=== PATIENT | female | born 1940 | race African-American/Black ===

== ENCOUNTER 2017-03-21 11:56 | Observation (INO) ==
[2017-03-21] MEDS ORDERED: ASPIRIN PO STA (12:27)
--- NOTE | 2017-03-21 13:41 | PROVIDER DOCUMENTATION ---
This chart was entered by Luda James Scribe, acting as scribe for Christian Pak MD. HPI-Musculoskeletal Pain/Inj - GENERAL Chief Complaint: Numbness Stated Complaint: left arm pain Time Seen by Provider: 03/21/17 12:20 Source: patient - HX OF PRESENT ILLNESS-MUSKULOSKELTAL Nature of Presenting Problem: 76 y/o F presents to ED cc of LUE pain. Pt states it was a sudden onset. Pt reports she was up cleaning this am when she became tired and laid down for a nap when she woke up with her left arm hurting. Pt states her hand is numb/ cold / blue. Pt denies any SOB/CP. Pt has not pain on exam but states she has pin/ needle feeling in hands. Pt has no loss of strength in left hand. Pt does have a stent placed in LLE due to clots. No pain can be reproduced. Pt sensation is intact, LUE has cyanotic appearance with cap refill less than 3 seconds. Pulse is weak. Pt is alert. Pt still has full range of motion of L arm. Quality of Pain: reports: aching, other (numbness/ pin and needles feeling) Severity in ED: mild Onset/Duration: just prior to arrival, 1-3 hours ago Timing: still present Modifying Factors: improves with: nothing Any recent injury?: No Similar Symptoms Previously?: No Recently seen or treated by another doctor?: No Review of Systems - Adult - REVIEW OF SYSTEMS - ADULT Constitutional: denies: chills, fever Ears, Nose, Mouth & Throat: denies: ear pain, nose pain Cardiovascular: denies: chest pain, palpitations Respiratory: denies: cough, shortness of breath Gastrointestinal: denies: abdominal pain, diarrhea, nausea, vomiting Genitourinary: denies: dysuria, discharge Musculoskeletal: reports: other (LUE PAIN/NUMBNESS). denies: bone pain, back pain, joint pain Neurological: denies: dizziness/vertigo, headache/migraines Past History - Adult - PAST MEDICAL HISTORY-ADULT Review of Records: reports: Old Records Reviewed, Nursing Assessment Review Major Childhood Illnesses: reports: denies history Cardiovascular: reports: CAD, CHF, HTN Respiratory: reports: COPD Endocrine/Immune: reports: Diabetes, thyroid disorder - PRIOR SURGERIES/PROCEDURES Surgical/Procedure History: reports: hysterectomy, other (THYROID) - PRIOR HOSPITALIZATIONS Prior Hospitalizations: reports: for other non-related - IMMUNIZATION STATUS Childhood Immunizations: See Nurse Assessment Flu Vaccine: See Nurse Assessment - FAMILY HISTORY Family History: reviewed, not pertinent - SOCIAL HISTORY Smoking: greater than 1 pack/day Provider spent 3-5 mins advising pt. on dangers of tobacco.: Discussed manners to quit use, and f/u contacts for add'l counseling. Substance Use: denies Physical Exam-Injury Related - Physical Exam-Injury Related Initial Vital Signs Reviewed: Yes General Appearance: alert, no apparent distress Eyes: pink conjunctivae Head, Ears, Nose, Mouth & Throat: moist mucous membranes, normal ENT inspection Neck: full range of motion, supple Respiratory: chest non-tender, lungs clear, normal breath sounds Cardiovascular: normal peripheral pulses, regular rate, rhythm, no edema Abdominal Exam: normal bowel sounds, non tender, soft Lymphatic: no adenopathy Back Exam: no CVA tenderness, no vertebral tenderness Extremity: non-tender, no pedal edema, no calf tenderness, other (LUE NUMBNESS/ PAIN - CYANOTIC APPERANCE. CAP REFILL IS LESS THAN 5 SECS.) Integumentary: normal color, warm/dry, blanching, other (CYANOTIC APPERANCE TO THE LUE WITH CAP REFILL LESS THAN 5 SECS) Neurologic: grossly normal, no motor/sensory deficits Psych/Mental Status: oriented x 3 - Glascow Coma Score Best Eye Response (Ariel): (4) open spontaneously Best Verbal Response (Ariel): (5) oriented Best Motor Response ([place]pton): (6) obeys commands [place] Total: 15 Progress - PLAN OF CARE/RESULTS Progress/Plan/Lab Results: Orders Category Date Time Status Cardiac Monitoring DIRECTED Care 03/21/17 12:27 Completed Nursing- MD Consult Request ROUTINE Care 03/21/17 18:01 Completed Saline Loc NOW Care 03/21/17 12:27 Active MD [Physician/Provider Consults] Routine Cons 03/21/17 18:00 Ordered CHEST-2 VIEWS [RAD] Stat Exams 03/21/17 12:27 Completed CBC WITH ELECTRONIC DIFF [HEME] Stat Lab 03/21/17 13:40 Completed CK PROFILE [SP CHEM] Stat Lab 03/21/17 13:40 Completed COMPREHENSIVE METABOLIC PANEL [CHEM] Stat Lab 03/21/17 13:40 Completed D-DIMER [CHEM] Stat Lab 03/21/17 13:40 Completed MAGNESIUM [CHEM] Stat Lab 03/21/17 13:40 Completed PRO B-NATRIURETIC PEPTIDE Stat Lab 03/21/17 13:40 Completed PROTIME WITH INR [COAG] Stat Lab 03/21/17 13:40 Completed PTT [COAG] Stat Lab 03/21/17 13:40 Completed TROPONIN T Stat Lab 03/21/17 13:40 Completed TYPE & SCREEN [BBK] Stat Lab 03/21/17 13:35 Completed 0.9% Sodium Chloride Inj [Ns] 2,000 ml Med 03/21/17 14:33 Discontinued .ROUTE As Directed Aspirin Med 03/21/17 12:27 Discontinued 325 mg PO STAT STA Cefazolin 1 gm/D5w [Kefzol 1 gm/D5w] Med 03/21/17 14:34 Discontinued 1 gm in 50 ml .ROUTE As Directed Furosemide [Lasix] Med 03/21/17 17:16 Discontinued 20 mg .ROUTE .STK-MED ONE Heparin Med 03/21/17 14:34 Discontinued 10,000 unit .ROUTE .STK-MED ONE Heparin Med 03/21/17 14:33 Discontinued 5,000 unit .ROUTE .STK-MED ONE Lactated Ringers Inj [Lr] 1,000 ml Med 03/21/17 17:42 Discontinued .ROUTE As Directed Lidocaine 1%/Epi 1:100,000 [Xylocaine 1%/Epi 1:100,000] Med 03/21/17 15:19 Discontinued 50 ml .ROUTE .STK-MED ONE Aerosol Treatments Stat Oth 03/21/17 17:23 Completed O2 Per Protocol Routine Oth 03/21/17 17:24 Completed Venous U/S Left Arm Stat Ther 03/21/17 12:27 Completed PLAN: LABS, RULE OUT CARDIAC AND CLOT, MONITOR PT. PT WILL GET A VENOUS U/S TO RULE OUT CLOT REFINERY OPERATOR CRUDE UNIT NOTIFIED DR. PAK OF RESULTS OF VASCULAR U/S. SURGERY HAS BEEN PAGED AND SURGERY HAS BEEN CALLED TO FIND DR. CROFT. HAS ALSO TEXT TO CALL ED. HAS CALLED BACK. Result Diagrams: 03/21/17 13:40 03/22/17 06:00 - EKG 1 Time of EKG reading by physician:: 13:25 EKG Read and Signed by:: Christian Pak EKG Interpretation (*Must complete 3 of following elements*): Abnormal Rate: 47 Rhythm: SINUS JAQUELINE W/PREMATURE ATRIAL COMPLEXES IN PATTERN OF BIGEMINY [place]: normal QRS: normal ME Interval: prolonged ST Wave: non-specific ST changes - CONSULTS/PCP/HOSPITALIST Notification #1 *Consult/PCP/Hospitalist*: ( surgrey ) Time Discussed: 13:23 Consult Disposition: Will see in ED - CHANGE OF SHIFT REPORT (ED Provider) Report Given and Care Transferred to:: Dr. Lehman(er doc) Items Pending: Physician Consult/Arrival Departure - Departure Date of Disposition Decision: 03/21/17 Time of Disposition Decision: 13:21 DIAGNOSIS: Arterial occlusion Disposition: ADMITTED INPATIENT 09 Certified Medical Emergency: Emergent Condition: Stable - Critical Care Note This patient required my direct & personal management of CC.: No This chart was documented by the indicated scribe, (Luda James Scribe) and accurately reflects the services I performed and decisions made by Mellisa dominguez Tom-Meka M., MD, as attested by the provider's signature.
--- NOTE | 2017-03-21 13:56 | Diag Imaging Result Doc PS360 ---
EXAM: CHEST-2 VIEWS HISTORY: CP TECHNIQUE: PA and lateral COMMENT: There is an area of fibrosis in the lingula. The inspiration is less optimal on the previous study of 02/04/2017 otherwise has been no significant change in the appearance of the chest. The heart size remains enlarged. IMPRESSION: Cardiomegaly. Stable chest. Electronically signed by Jj Cruz 03/21/2017 1:54 PM
[2017-03-21 13:59] LABS: MANUAL DIFF NEEDED? NO
[2017-03-21 14:04] LABS: BASO% 0.1 % (0.0-0.8); EOS# 0.09 X1000 (0.0-0.7); EOS% 1.3 % (0.0-10.0); HEMATOCRIT 33.9 % (37.0-47.0); LYMPH# 1.03 X1000 (1.2-3.4); LYMPH% 14.5 % (20.5-51.1); MCH 30.5 PG (27-31); MCHC 32.4 g/dL (33-37); MCV 93.9 FL (81-99); MONO# 0.42 X1000 (0.11-0.59); MONO% 5.9 % (1.7-9.3); MPV 11.8 FL (7.4-10.4); NEUT% 78.2 % (42.2-75.2); PLT 183 X1000 (130-400); RBC 3.61 XMIL (4.2-5.4)
[2017-03-21 14:13] LABS: INR 1.05; PROTIME 11.1 Seconds (9.2-11.7); PTT 31.7 Seconds (22.0-36.0)
[2017-03-21 14:33] LABS: ALBUMIN 3.3 g/dL (3.5-5.0); CALCIUM 8.3 mg/dL (8.8-10.2); TOTAL BILIRUBIN 0.26 mg/dL (0.20-1.00)
[2017-03-21] MEDS ORDERED: NS 2,000 ML ONE (14:33)
[2017-03-21] MEDS ORDERED: HEPARIN ONE ×2 (14:33→14:34)
[2017-03-21] MEDS ORDERED: KEFZOL 1 GM/D5W 1 GM/50 ML IVPB ONE (14:34)
[2017-03-21] MEDS ORDERED: XYLOCAINE 1%/EPI 1:100,000 ONE (15:19)
--- NOTE | 2017-03-21 15:26 | HISTORY AND PHYSICAL ---
HISTORY OF PRESENT ILLNESS: Ms. Jenna Pereira is a 76-year-old black female who this morning began experiencing left shoulder and upper extremity pain acutely. She has known peripheral vascular disease and this pain began around 10 o'clock this morning. She presented to the emergency department and has been evaluated including a duplex ultrasound of the arteries left upper extremities, which suggests a embolus or clot involving the proximal left brachial artery. We were asked to evaluate her because of her ischemic left upper extremity. PAST MEDICAL HISTORY: Diabetes, hypertension, previous vascular surgery by Dr. Meza in [place]. MEDICATIONS: As listed. ALLERGIES: No known drug allergies. SOCIAL HISTORY: She is retired. Her daughter was present at the bedside. FAMILY HISTORY: Noncontributory. REVIEW OF SYSTEMS: A 14-point review of systems was performed. She has no cardiac complaints and was essentially negative except for the history of present illness. She did not say that she had a history of atrial fibrillation, but she is on chronic anticoagulation. PHYSICAL EXAMINATION: GENERAL: Ms. Pereira is an elderly, slim black female in no acute distress. She does complain of numbness involving her left upper extremity. She has no focal deficits. No jaundice. No oral lesions. No cervical or supraclavicular lymphadenopathy. I could not palpate brachial artery pulse or a radial pulse left upper extremity. I could on the right upper extremity. She did have palpable femoral pulses bilaterally. She was able to move her left arm. She was able the squeeze my fingers with her hand but it felt numb and was cool. DIAGNOSTIC DATA: I reviewed her duplex arterial study of the left upper extremity. It appears that she has a bifid left brachial artery. Does appear that she has an acute clot or embolus involving the proximal brachial artery by duplex ultrasound. IMPRESSION: Acute ischemia, left upper extremity. PLAN: Urgent thrombectomy or embolectomy, left upper extremity. I have discussed this in detail with the patient and her daughter at the bedside in the emergency department. We specifically discussed risks of surgery which include bleeding, infection, persistent ischemia of the left upper extremity, even loss of limb because of ischemia. They understand the urgency of this operation and want to proceed. cc: Catie Simms MD
[2017-03-21] MEDS: LASIX ONE (17:19)
[2017-03-21] MEDS ORDERED: LR 1,000 ML ONE (17:42)
--- NOTE | 2017-03-21 17:54 | OPERATIVE NOTE ---
PROCEDURE DATE: 03/21/2017 PREOPERATIVE DIAGNOSIS: Ischemic left hand. POSTOPERATIVE DIAGNOSIS: Ischemic left hand. PRINCIPAL PROCEDURE: Thromboembolectomy with vein patch angioplasty left brachial arteries x2. SURGEON: Catie Simms MD. MANAGER FIELD: Ghanshyam Carver RN. ANESTHESIA: General in addition to local anesthetic. ESTIMATED BLOOD LOSS: 200 mL. DRAINS: None. INDICATIONS: Ms. Jenna Pereira is a 76-year-old black female who presented to our emergency department with a 3-hour history of pain in her left shoulder and arm which was severe. On exam it appeared that her left upper extremity was cool and arterial duplex studies suggested an embolus within the proximal brachial arteries. She had two brachial arteries involving her left arm and it appeared that clot involved both of these brachial arteries. They divided proximally in the left arm. On exam prior to surgery she had no radial pulse but she could move her fingers. FINDINGS: We removed a significant amount of clot from the most inferior branch of the brachial artery at the distal medial left arm arteriotomy site. We also removed a small amount of clot from the smaller second brachial artery more anterior medially in the left arm again through an arteriotomy site in the distal left medial arm. At the end of our procedure we had a strong palpable left radial pulse and both of the brachial arteries were open. We performed a patch angioplasty of our arteriotomy sites in both brachial arteries. DESCRIPTION OF PROCEDURE: The patient was brought to the operating room urgently. Her left upper extremity was prepped and draped in a sterile field. She received Ancef prophylactically. She underwent general anesthesia. I made a small longitudinal incision in medial aspect of her distal left arm above the antecubital fossa and identified one of the brachial arteries. A segment of it was isolated, using this incision between vessel loops. We used a Weitlaner retractor. I found the other brachial artery more inferiorly and again isolated a segment of it with vessel loops. The patient was given 3000 units of IV heparin. She was already on aspirin and another anticoagulant. We began by working on the deepest brachial artery. Remember there were two brachial arteries in the left arm, they divided high in the medial left arm. There was the basilic vein and another smaller vein that were close to these arteries and I used segments of these veins for the patch to close our arteriotomy site. We made the arteriotomy in the first brachial artery with an 11 blade scalpel. We controlled inflow and outflow with vessel loops. I used a #4 Marline catheter distally and then proximally to remove a significant amount of clot and embolus through our arteriotomy site. We had good inflow after several sweeps with the #4 Marline balloon, and we felt that all the clot was removed both proximally and distally. I closed the arteriotomy site with a vein patch using double-arm 6-0 Prolene stitches. Flow was reestablished. I had to take several single arm stitches to control some bleeding from our closure. After the closure we had a palpable radial pulse. I then directed my attention to the second brachial artery more anteriorly. Again an arteriotomy was made with 11 blade scalpel and we used a #3 Marline catheter both proximally and distally and removed a smaller amount of clot and re- established inflow. Again I used a vein patch to perform a patch angioplasty using double-arm 6-0 Prolene stitches. We again reestablished flow and at the end of the procedure both brachial arteries had flow in them at our incision site and we had a strong palpable left radial pulse. I closed the wound in layers with 3-0 popoff Vicryl stitches, closed the subcutaneous tissue and skin was closed with 4-0 Monocryl subcuticular stitch. Dressings were applied. She tolerated the procedure well with plans for her to go the recovery room and then be hospitalized at least overnight so we can have Cardiology evaluate the patient for possible etiology of this thromboembolus. cc: Catie Simms MD
[2017-03-21] MEDS ORDERED: NICODERM PATCH TD PRN (18:36)
[2017-03-21] MEDS ORDERED: ZOFRAN IV PRN (18:40)
[2017-03-21] MEDS ORDERED: D50W SYRINGE IV PRN (18:46)
--- NOTE | 2017-03-21 18:59 | CONSULTATION ---
DATE OF CONSULTATION: 03/21/2017 INDICATION: History of atrial fibrillation with left upper extremity arterial embolus. HISTORY OF PRESENT ILLNESS: Ms. Pereira is a 76-year-old black female with a history of paroxysmal atrial fibrillation maintained on amiodarone as well as Eliquis. She presented with left upper extremity pain that began this morning. On further evaluation she was found to have a embolus in the left brachial artery which since has been surgically removed by Dr. Simms. Since that time, she has done well and has no complaints to the left upper extremity anymore. She thinks she has had some noncompliance with some of her cardiac medications. She is unclear of exactly which ones but thinks that she may have been off the Eliquis for some time. In addition, she has had chronic abdominal pain which has been persisting for the last several months. It sounds like she has had an EGD and colonoscopy but that may have been done some time ago. She has not followed back up with GI since then. No nausea or vomiting. She just continues to have abdominal pain and issues with constipation. She thinks she has had poor oral intake as well as issues with weight loss. PAST MEDICAL HISTORY: Significant for. 1. Paroxysmal atrial fibrillation. 2. Coronary artery disease with catheterization in 2010. At that time, she had mild disease up to 30% in the left anterior descending as well as the circumflex and right coronaries. 3. Hypertension. 4. Hyperlipidemia. 5. History of peripheral vascular disease with a left SFA stent in 2007, right SFA angioplasty in 2009 and right popliteal artery angioplasty in 2009 as well. Now she has had issues in the left brachial artery. 6. History of hypertrophic cardiomyopathy. This was not evident on echocardiogram. However she did have a gradient noted during catheterization. 7. Diabetes mellitus. 8. Chronic back pain. 9. Chronic abdominal pain. SOCIAL HISTORY: She does smoke. No alcohol. No illicit drugs. REVIEW OF SYSTEMS: A 10 system review of systems is negative except for those things mentioned in HPI. FAMILY HISTORY: Significant for stroke in her mother. PHYSICAL EXAMINATION: Vital signs: She has been afebrile. Her heart rates are documented anywhere from the 40s to 60s. Blood pressure is 165/60. General: She is in no acute distress. HEENT: Oropharynx is moist. Normal dentition. Eye examination shows pink conjunctivae, white sclerae. Neck: Examination shows no obvious thyromegaly or thyroid tenderness. Cardiovascular: She sounds to be in a regular rate and rhythm. EKG currently shows sinus mechanism. She has no lower extremity edema. She has good pulses in her bilateral radial arteries. No carotid bruits. Chest: Exam sounds clear to auscultation bilaterally. She has no increased work of breathing. Abdomen: Soft, nontender, nondistended. She has no obvious organomegaly. Skin Exam: Warm and dry throughout without any rashes. Neurological: She is moving all extremities well. Cranial nerves 2-12 are intact without sensation deficits. Psychiatric: Alert, oriented, pleasant. Normal mood and affect. PERTINENT DATA: Her white count 7.1, her hematocrit is 33.9, platelet count is 183,000. INR 1.05. D-dimer was elevated at 1.41. Sodium 139, potassium 4, BUN 18, creatinine 1.3. Cardiac enzymes negative. ProBNP 1449. ASSESSMENT: 1. Acute embolic arterial embolus. 2. Atrial fibrillation. 3. Chronic abdominal pain. PLAN: We will check an echocardiogram in the morning. I would recommend continuing the Eliquis as previously ordered by Dr. Simms. She is also on amiodarone which I agree with. We will watch her on telemetry overnight. If echocardiogram is unremarkable, then she may be discharged from a cardiovascular standpoint. We could consider transesophageal echocardiogram down the road as an outpatient but presently whether she has a clot in her heart does not change the present plan of continued anticoagulation. I have stressed the compliance with anticoagulation with the patient. I will consult GI in the morning to see the patient considering her continued abdominal pain which seems to be causing her a significant amount of distress. cc: MD Catie Singleton MD
[2017-03-21] MEDS: NORCO-7.5 PO PRN (19:04)
[2017-03-21] MEDS: LR 1,000 ML IV SCH (19:05)
[2017-03-21] MEDS ORDERED: FENTANYL ONE (19:24)
[2017-03-21] MEDS ORDERED: DIPRIVAN 1% ONE (19:50)
[2017-03-21] MEDS: ELIQUIS PO SCH (20:57)
[2017-03-21] MEDS: HUMALOG SUBQ SCH (20:57)
[2017-03-21] MEDS: ATIVAN PO SCH (20:57)
[2017-03-21] MEDS: CATAPRES PO SCH (20:57)
[2017-03-21] MEDS: PERIDEX MT SCH (20:57)
[2017-03-22] MEDS: NORCO-7.5 PO PRN ×2 (04:24→19:29)
[2017-03-22] MEDS: LR 1,000 ML IV SCH ×3 (04:25→21:38)
[2017-03-22] MEDS ORDERED: TUMS PO PRN (04:26)
[2017-03-22] MEDS: HUMALOG SUBQ SCH ×4 (06:25→21:32)
[2017-03-22 06:39] LABS: CALCIUM 8.3 mg/dL (8.8-10.2); POTASSIUM 4.1 mmol/L (3.5-5.1)
[2017-03-22] MEDS: CATAPRES PO SCH ×2 (11:24→21:32)
[2017-03-22] MEDS: CORDARONE PO SCH (11:24)
[2017-03-22] MEDS: HYDROCHLOROTHIAZIDE PO SCH (11:24)
[2017-03-22] MEDS: ASPIRIN PO SCH (11:24)
[2017-03-22] MEDS: PRINIVIL PO SCH (11:25)
[2017-03-22] MEDS: ELIQUIS PO SCH ×2 (11:25→21:32)
[2017-03-22] MEDS: PERIDEX MT SCH ×2 (11:26→21:33)
[2017-03-22] MEDS: LASIX ONE (12:18)
[2017-03-22] MEDS ORDERED: MILK OF MAGNESIA PO ONE (14:38)
--- NOTE | 2017-03-22 14:43 | PROGRESS NOTE ---
DATE: 03/22/2017 SUBJECTIVE: Ms. Pereira reports her left upper extremity is doing well. She is having no issues with any pain. She has a good pulse. She continues to have issues with abdominal pain that seemed chronic and relatively mild to moderate at this time. She reports some swelling in her left leg that also is chronic with some discomfort, as well. PHYSICAL EXAMINATION: Vital Signs: She is afebrile. Heart rates have been anywhere from the 40s to the 60s. Blood pressure is 147/45. General: She is in no acute distress. Cardiovascular: She is in a regular rate and rhythm. She has no obvious murmurs. She has no S3. No lower extremity edema. Chest: Examination is clear bilaterally. She has no increased work of breathing. Abdomen: Soft and nontender. PERTINENT DATA: Her sodium is 140, potassium 4.1, BUN 20, creatinine 1.3. ASSESSMENT: 1. Acute left upper extremity arterial clot, status post thrombectomy. 2. Left lower extremity edema and pain. PLAN: We will check a venous ultrasound of the left lower extremity. If this is clear, she can likely be discharged home. Even if it is positive, she can likely be discharged, as she is already on Apixaban. I will have her follow up as an outpatient with me in clinic in a month or so. cc: MD Catie Singleton MD
--- NOTE | 2017-03-22 14:56 | PROGRESS NOTE ---
DATE: 03/22/2017 Ms. Jenna Pereira is a 76-year-old black female who is now postop day 1 from a urgent left brachial artery thromboembolectomy for an ischemic left upper extremity. I performed this procedure yesterday evening with removal of a clot. She does have 2 brachial arteries involving the left arm and both of these arteries were cleared of clot and a patch angioplasty using vein was performed of the arteriotomy site. This morning she has a palpable left radial pulse that is strong and the symptoms of her ischemic hand have improved. The wound is dressed. There is no evidence of abnormal swelling or ongoing bleeding. We have placed her on chronic anticoagulation per Cardiology for atrial fibrillation. She is undergoing an echocardiogram this morning. I do not know those results. It must be noted that she is complaining of trouble eating and some abdominal discomfort which is significant for her and needs to be evaluated probably as an outpatient. cc: Catie Simms MD
--- NOTE | 2017-03-22 15:16 | ECHO REPORT ---
ORDER DATE: 03/22/2017 INDICATION: Atrial fibrillation. History of arterial embolus. FINDINGS: 1. The right atrium is mildly enlarged at 4.1 cm. 2. Mild to moderate tricuspid regurgitation. RV systolic pressure of 92 suggesting pulmonary hypertension. 3. Normal RV size and systolic function. 4. Mild pulmonic insufficiency. 5. Moderate left atrial enlargement at 5.5 cm. 6. No mitral valve prolapse. Trace mitral regurgitation. 7. Normal LV size, end-diastolic dimension of 4.7. There is moderate left ventricular hypertrophy with a posterior and interventricular septal wall thickness 1.5 and 1.3 cm respectively. LV function appears to be hyperdynamic with a EF greater than 70%. There is no significant LV outflow tract gradient noted. However the patient gave poor effort on Valsalva. 8. Aortic valve opens well and appears trileaflet. No evidence of stenosis or insufficiency. 9. Aorta appears normal in visualized segments. 10. There is evidence for a very scant pericardial effusion anteriorly but no evidence of tamponade physiology. cc: MD Catie Singleton MD
[2017-03-22] MEDS: MYLICON PO SCH ×2 (18:11→21:32)
--- NOTE | 2017-03-22 18:36 | CONSULTATION ---
DATE OF CONSULTATION: 03/22/2017 Patient was seen for Dr. Blanco. Reason for consult was abdominal pain. HISTORY: This is a 76-year-old female who sees Dr. Blanco as her GI. She has had EGD and colonoscopy not too long ago for her current symptoms. She reports that for the past 6 months she has been experiencing abdominal pain which is diffuse and usually postprandial associated with bloating, burping and also excessive flatulence. She has been through EGD and colonoscopy. I do not have the report with me. Apparently, she was told that she has gastritis and needs to take some MiraLAX. She has done that but continues to have symptoms. Since she was admitted to the hospital consult was obtained for her to be seen while she is in the hospital. She has underwent thrombectomy for her carotid artery. She tells me the pain is diffuse and associated with bloating, burping and flatulence. It is not associated with nausea. Her appetite is good but she does not want to eat because of postprandial bloating. She has not lost any weight. She has not had any dysphagia or odynophagia. Denies any melena or bright red blood per rectum. She has not had any dysuria, polyuria, hematuria. Has not any fever, chills. PAST MEDICAL HISTORY: Significant for diabetes, hypertension. She has peripheral vascular disease and gastritis. She has paroxysmal atrial fibrillation, coronary disease status post catheterization in 2010, hyperlipidemia, chronic back pain. MEDICATION: Prior to hospitalization, she has been on lisinopril, Lortab, hydrochlorothiazide, hydralazine, gabapentin, Catapres, aspirin, Eliquis, Norvasc, Cordarone, spironolactone, lorazepam and NovoLog. ALLERGIES: No known allergies. SOCIAL HISTORY: She is a , lives by herself. Does not smoke. Does not drink, does not do illicit drugs. FAMILY HISTORY: Noncontributory. REVIEW OF SYSTEMS: As per HPI as above. On examination very pleasant female. She is conscious, alert. Appears to be in no distress. She is very anxious about her abdominal pain.Vital Signs: Temperature 98.5 degrees, pulse 63 per minute, breathing 16. Blood pressure 147/45. She weighs about 158 pounds. She is 5 feet 9 inches tall. HEENT: Head is atraumatic normocephalic. Eyes: Conjunctiva is normal. Sclerae anicteric. Nares are patent. No discharge. Mouth: Buccal mucosa is moist. Throat is normal. Neck: Supple. No lymphadenopathy or thyromegaly. Chest: Bilaterally symmetrical. It is moving with respirations. Breath sounds audible bilaterally. No rhonchi or crepitations could be heard. Heart: S2 audible. No murmur could be appreciated. Abdomen: Full, soft, nontender. No masses were noted. Bowel sounds are audible. No pedal edema, cyanosis, clubbing was noted. BULLION WEIGHER: Grossly intact. No sensory or motor deficit. There is a dressing applied to her antecubital area. Labs reviewed which showed WBC 37.12, hemoglobin 11, hematocrit 33.9, MCV 93.9, platelets were 183,000. PT 11.1. INR 1.05. PTT 31.7. Sodium 140, potassium 4.1, chloride 105, bicarb 24, BUN is 20, creatinine 1.3. Glucose 195. AST 14, ALT 10. IMPRESSION: This is a 76-year-old female who was admitted to hospital for thrombectomy. She has been complaining of abdominal pain which is going on for the past 6 months or so for which she has been treated with different medication. Has undergone EGD and colonoscopy. Her pain is not different from prior to her admission. I do not have the report of her EGD and colonoscopy with me now. She has been constipated and has not had a bowel movement. I would give her some medication to help her alleviate her constipation and also give her some simethicone for gas, eructations and flatulence and see if that symptomatic treatment would help her. However she does need further evaluation which may require CT scan of the abdomen to look at the small bowel and other extraintestinal pathologies in the abdomen. That very well can be done as an outpatient if she is ready to be discharged for her initial reason for admission. If she is still in the hospital by Friday Dr. Blanco will be able to pick her up for further management. I have explained the finding and plan to the patient's daughter who was present at the bedside. She understood. All the pertinent questions answered. cc: MD Catie Shafer MD
[2017-03-22] MEDS: ATIVAN PO SCH (21:32)
[2017-03-23] MEDS: NORCO-7.5 PO PRN (03:24)
[2017-03-23] MEDS: HUMALOG SUBQ SCH (06:07)
[2017-03-23 09:14] VITALS: BP 171/50
[2017-03-23] MEDS: ASPIRIN PO SCH (09:20)
[2017-03-23] MEDS: ELIQUIS PO SCH (09:20)
[2017-03-23] MEDS: HYDROCHLOROTHIAZIDE PO SCH (09:20)
[2017-03-23] MEDS: CORDARONE PO SCH (09:20)
[2017-03-23] MEDS: PRINIVIL PO SCH (09:20)
[2017-03-23] MEDS: CATAPRES PO SCH (09:20)
[2017-03-23] MEDS: MYLICON PO SCH (09:20)
--- NOTE | 2017-03-23 10:50 | DISCHARGE SUMMARY ---
ADMISSION DATE: 03/21/2017 DISCHARGE DATE: 03/23/2017 ADMITTING DIAGNOSIS: Acute ischemia of left upper extremity. DISCHARGE DIAGNOSIS: Thromboembolus involving the left brachial artery. PRINCIPAL PROCEDURE: Thromboembolectomy of left arm brachial artery x2 with a vein patch angioplasty performed on 03/21/2017. CONSULTATIONS: 1. Cardiology, Dr. Evelio Wilson. 2. GI medicine, Dr. Pan. DISCHARGE DIET: Regular. DISCHARGE DISPOSITION: She will return to see us in our outpatient offices in 1 week. DISCHARGE DISABILITY: Full. DISCHARGE MEDICATIONS: She is to return to her home medications which include multiple blood pressure medicines. We have stressed her to take her anticoagulation medicines correctly. HOSPITAL COURSE: Ms. Jenna Pereira is a 76-year-old black female, patient Dr. Franks, who presented to our emergency department with an ischemic left upper extremity. A duplex ultrasound of the left upper extremity suggested a thrombus involving brachial arteries in the left arm. Her brachial artery bifurcated high in the left arm and she had 2 brachial arteries going down to the antecubital fossa. She was urgently taken to the operating room and then she underwent thromboembolectomy of both of these brachial arteries is left arm with vein patch angioplasty of our arteriotomy sites which was in the distal left arm above the antecubital fossa. We removed clot from both arteries and at the end of the procedure we had a good radial pulse at the wrist. She tolerated the procedure well and after surgery she went to the recovery room and then she was admitted. We asked cardiology to see her to be sure that she was on the correct medicine for her high blood pressure and for her chronic atrial fibrillation. She underwent an echo and Dr. Evelio Wilson evaluated her. Dr. Wilson also asked GI Medicine to see her because of a six-month history of abdominal pain. This was not an acute issue for her during this hospitalization but Dr. Pan evaluated her and suggested further evaluation as an outpatient with Dr. Blanco who has fairly recently performed an upper and lower endoscopy. At the time of discharge her left arm wound was healing well. She had a strong left radial pulse. She was awake, cooperative, moving in the room, tolerating the diet. Her blood pressure was 164/56, heart rate was 56-64. She was essentially afebrile and her O2 saturation was 94% on room air. It was encouraged that she quit smoking. I will see her in a week. cc: MD Dr. Golden Adames MD Babu Kantamneni, MD
[2017-03-24] MEDS ORDERED: ZOFRAN ONE (09:21)
[2017-03-24] MEDS ORDERED: EPHEDRINE ONE (09:21)
[2017-03-24] MEDS ORDERED: HEPARIN ONE (09:21)
[2017-03-24] MEDS ORDERED: ROBINUL ONE (09:21)
[2017-03-24] MEDS ORDERED: NEO-SYNEPHRINE ONE (09:21)
[2017-03-24] MEDS ORDERED: XYLOCAINE-MPF 2% ONE (09:22)
[2017-03-24] MEDS ORDERED: NS 250 ML ONE (09:22)
[2017-03-24] MEDS ORDERED: QUELICIN (DOSE) ONE (09:22)
[2017-03-24] MEDS ORDERED: LR 2,000 ML ONE (09:22)
--- NOTE | 2017-03-25 11:54 | VASCULAR LAB ---
DATE: 03/21/2017 REFERRING PHYSICIAN: Dr. Pak from the emergency department RN STAFF: Linda Valverde RVT INDICATION: Pain in left arm (ICD-10 M79.605). FINDINGS: The left subclavian and axillary artery had arterial flow through them. The brachial artery divided proximally in the arm, and there were 2 brachial arteries involving almost the entire length of the left arm. At this bifurcation, there appeared to be a thrombus with occlusion of both branches of this bifurcated brachial artery proximally, left arm, without arterial flow distally. cc: MD Christian Adames MD
--- NOTE | 2017-03-25 13:34 | Extremity Venous Study ---
PROCEDURE NAME: Venous U/S Left Leg - 03/22/2017 PROCEDURE: Left lower extremity venous duplex and color flow imaging study. EQUIPMENT: Using the [employer] E 9 ultrasound system with a 9 L-D transducer. DATE OF STUDY: 03/22/2017. REFERRING PHYSICIAN: Dr. Evelio Wilson. PATIENT PROFILE: This is a 76-year-old female. SHERIFF'S OFFICER: Di Camacho RVT. INDICATIONS: Swelling of the limb, M 79.89. DESCRIPTION OF PROCEDURE IN DETAIL: This patient was admitted with an acute thrombus involving her left arm brachial artery. While in the hospital, it was noted that she had left lower extremity edema. FINDINGS: The left common femoral vein and its branches, deep and superficial femoral veins, were satisfactorily imaged. They had flow through them and were compressible. Left popliteal vein and the deep veins below the left knee were all compressible and had flow through them. The superficial veins the left lower extremity were compressible throughout their length. INTERPRETATION: No evidence of acute deep or superficial venous thrombosis left lower extremity. cc: MD Evelio Adames MD
--- NOTE | 2017-03-27 15:03 | Extremity Venous Study ---
PROCEDURE NAME: Venous U/S Left Arm - 03/21/2017 LEFT UPPER EXTREMITY VENOUS DUPLEX, AND COLOR FLOW IMAGING STUDY USING THE [employer] E 9 ULTRASOUND SYSTEM WITH A 9 L-D TRANSDUCER: REFERRING PHYSICIAN: Christian Pak MD from the Emergency Department IDENTIFYING INFORMATION: 76-year-old female. FRUIT GRADER: Linda Lyle RVT. INDICATIONS: Chest pain, unspecified. ICD 10 R07.9. FINDINGS: The right internal jugular vein had flow through it and was compressible. The right subclavian and axillary veins had flow through them. The brachial vein was compressible throughout its length in the left arm. The superficial veins of the left arm were compressible and had flow through them as did the veins in the antecubital fossa and the small veins left forearm. INTERPRETATION: No evidence of acute deep or superficial venous thrombosis left upper extremity. cc: MD Christian Adames MD
== END 2017-03-23 11:11 | disposition home or self-care (01) ==
LOC: ED 11:56 → INTOOBSV 18:06 → 4N 18:06
PROVIDERS: ADMIT Surgery; ATTEND Surgery

== ENCOUNTER 2018-12-11 04:53 | Inpatient (IN) ==
[2018-12-11] MEDS ORDERED: ASPIRIN PO ONE (05:48)
[2018-12-11] MEDS ORDERED: ASPIRIN PR ONE (05:48)
[2018-12-11 06:12] LABS: BASO# 0.01 X1000 (0.0-0.2); BASO% 0.1 % (0.0-0.8); EOS# 0.41 X1000 (0.0-0.7); EOS% 2.9 % (0.0-10.0); HEMATOCRIT 35.2 % (37.0-47.0); HEMOGLOBIN 11.8 g/dL (12.0-16.0); IMM GRAN# 0.05 X1000 (0.0-0.04); IMM GRAN% 0.4 % (0.0-0.5); LYMPH# 1.33 X1000 (1.2-3.4); LYMPH% 9.4 % (20.5-51.1); MCH 30.2 PG (27-31); MCHC 33.5 g/dL (33-37); MONO% 8.5 % (1.7-9.3); MPV 12.1 FL (7.4-10.4); NEUT# 11.11 X1000 (1.4-6.5); NEUT% 78.7 % (42.2-75.2); PLT 142 X1000 (130-400); RBC 3.91 XMIL (4.2-5.4); RDW 13.6 % (11.5-14.5); WBC 14.11 X1000 (4.8-10.8)
[2018-12-11 06:35] LABS: INR 1.08; PROTIME 14.6 Seconds (11.0-16.0)
[2018-12-11 06:36] LABS: PTT 38.5 Seconds (22.3-41.8)
--- NOTE | 2018-12-11 06:37 | Diag Imaging Result Doc PS360 ---
CHEST-2 VIEWS - 12/11/2018 INDICATION: shortness of breath COMPARISON: 06/01/2018 FINDINGS: Stable left-sided dual-chamber pacemaker. Stable mild cardiomegaly. Pulmonary vascularity is top normal. There is some ill-defined infiltrate in the right upper and lower lobes. No pneumothorax or pleural effusion. IMPRESSION: Ill-defined infiltrates in the right upper and lower lobes consistent with pneumonia or edema. Electronically signed by Reynold Lloyd 12/11/2018 6:34 AM
--- NOTE | 2018-12-11 06:39 | EKG Report ---
Test Performed on : 12/11/2018 05:14:28 AM Test Reason : short of breath Blood Pressure : / mmHG Vent. Rate : 062 BPM Atrial Rate : 062 BPM P-R Int : 210 ms QRS Dur : 094 ms QT Int : 456 ms P-R-T Axes : 084 013 176 degrees QTc Int : 462 ms Atrial-paced rhythm with prolonged AV conduction ST & T wave abnormality, consider inferior ischemia ST & T wave abnormality, consider anterolateral ischemia Abnormal ECG When compared with ECG of 13-NOV-2017 11:31, Electronic atrial pacemaker has replaced Electronic ventricular pacemaker Unconfirmed Result
[2018-12-11 06:44] LABS: ALBUMIN 3.2 g/dL (3.5-5.0); CREATININE 1.3 mg/dL (0.5-0.9); POTASSIUM 3.9 mmol/L (3.5-5.1); TOTAL BILIRUBIN 0.4 mg/dL (0.20-1.00); TOTAL PROTEIN 6.1 g/dL (6.3-8.3)
[2018-12-11] MEDS ORDERED: ROCEPHIN 1 GM in NS 50 ML IV ONE (06:46)
[2018-12-11] MEDS ORDERED: LASIX IV ONE (07:19)
--- NOTE | 2018-12-11 07:39 | PROVIDER DOCUMENTATION ---
HPI-Respiratory General - General Chief Complaint: Shortness of Breath Stated Complaint: COLD LIKE SX Time Seen by Provider: 12/11/18 06:45 Source: patient Allergies/Adverse Reactions: Patient Allergies Allergy/AdvReac Type Severity Reaction Status Date / Time No Known Allergies Allergy Verified 02/23/18 05:56 Home Medications: Home Medication List Medication Instructions Recorded Confirmed Last Taken Type Clonidine [Catapres] 0.2 mg PO BID 09/08/14 12/11/18 02/23/18 04:15 History Gabapentin 300 mg PO BID 09/08/14 12/11/18 02/20/18 History Hydralazine HCl 100 mg PO BID 09/08/14 12/11/18 02/23/18 04:15 History Insulin Aspart [Novolog] 10 unit SQ TID PRN PRN 09/08/14 12/11/18 02/22/18 19: 00 History 2 units Lisinopril 40 mg PO DAILY 09/08/14 12/11/18 02/22/18 08:00 History Lorazepam 0.5 mg PO HS 09/08/14 12/11/18 02/09/18 History Spironolactone 25 mg PO DAILY 09/08/14 12/11/18 02/22/18 19:00 History Amiodarone [Cordarone] 200 mg PO DAILY #30 tablet 08/22/16 12/11/18 02/23/18 04: 15 Rx Apixaban [Eliquis] 5 mg PO BID #60 tablet 08/22/16 12/11/18 02/18/18 Rx Amlodipine Besylate 0.5 tab PO DAILY 11/12/17 12/11/18 02/22/18 20:00 History Hydrochlorothiazide 12.5 mg PO DAILY 11/12/17 02/23/18 02/22/18 History Insulin Glargine,Hum.rec.anlog 13 unit SQ HS 11/12/17 02/23/18 02/22/18 19:00 History [Lantus Solostar] 12 units Metoprolol Tartrate 50 mg PO BID 11/12/17 12/11/18 02/23/18 04:15 History Hydrocodone/APAP 7.5 mg/325 mg 1 each PO Q4H PRN #12 tablet 02/24/18 12/11/18 Unknown Rx [[place]-7.5] - History of Present Illness-Resp Nature of Presenting Problem: Patient is a 78 year old black female with history of atrial fibrillation, COPD , S/P pacemaker placement,diabetes, and HTN, followed by Dr. Eric Franks who presents with increasing SOB,productive white sputum, with orthopnea since last night. Denies fever, chest pain. Onset/Duration: reports: gradual, this evening Timing: reports: still present Exposure: reports: unknown cause Cough Quality/Degree: reports: moderate, sputum (clear) Associated Symptoms: reports: cough. denies: chest pain/soreness, fever/chills Similar Symptoms Previously?: Yes Recently seen or treated by another doctor?: Yes (Dr. Eric Franks) Review of Systems - Adult - REVIEW OF SYSTEMS - ADULT Constitutional: denies: chills, fever Eyes: reports: no symptoms reported Ears, Nose, Mouth & Throat: reports: no symptoms reported Cardiovascular: reports: orthopnea. denies: chest pain Respiratory: reports: cough, shortness of breath, wheezing Gastrointestinal: denies: abdominal pain, nausea, vomiting Genitourinary: reports: no symptoms reported Musculoskeletal: reports: no symptoms reported Integumentary: reports: no symptoms reported Neurological: reports: no symptoms reported Psychiatric: reports: anxiety Endocrine: reports: no symptoms reported Hematologic/Lymphatic: reports: no symptoms reported Allergic/Immunologic: reports: no symptoms reported All Other Systems: Reviewed and Negative Past History - Adult - PAST MEDICAL HISTORY-ADULT Review of Records: reports: Old Records Reviewed, Nursing Assessment Review, Medications Reviewed, Social history reviewed & non-contributory. Major Childhood Illnesses: reports: denies history Cardiovascular: reports: CAD, CHF, HTN Respiratory: reports: COPD Endocrine/Immune: reports: Diabetes, thyroid disorder - PRIOR SURGERIES/PROCEDURES Surgical/Procedure History: reports: hysterectomy, other (THYROID) - PRIOR HOSPITALIZATIONS Prior Hospitalizations: reports: for other non-related - IMMUNIZATION STATUS Childhood Immunizations: See Nurse Assessment Flu Vaccine: See Nurse Assessment - FAMILY HISTORY Family History: reviewed, not pertinent Physical Exam-General - PHYSICAL EXAM-ADULT Initial Vital Signs Reviewed: Yes - CONSTITUTIONAL General Appearance: alert, no apparent distress - EYES Eyes: other (clear) - HEAD, EARS, NOSE, MOUTH & THROAT HENMT: moist mucous membranes - NECK Neck: supple - RESPIRATORY Respiratory: no respiratory distress, no accessory muscle use, decreased breath sounds, rhonchi - CARDIOVASCULAR Cardiovascular: regular rate, rhythm - GASTROINTESTINAL (ABDOMEN) Abdominal Exam: non tender, soft - LYMPHATIC Lymphatic: no adenopathy - MUSCULOSKELETAL Back Exam: normal inspection, no CVA tenderness Extremity: non-tender. negative: swelling Peripheral Pulses: radial (R): 2+, radial (L): 2+ - SKIN Integumentary: normal color, warm/dry - NEUROLOGIC Neurologic: grossly normal - PSYCHIATRIC Psych/Mental Status: anxious Progress - PLAN OF CARE/RESULTS Progress/Plan/Lab Results: Vital Signs - 8 hr 12/11/18 04:58 12/11/18 07:29 Temperature 98.9 F Pulse Rate 62 61 Respiratory Rate 20 15 Blood Pressure 184/69 183/69 O2 Sat by Pulse Oximetry 95 97 Laboratory Results - last 24 hr 12/11/18 12/11/18 12/11/18 05:50 05:50 05:50 WBC 14.11 H RBC 3.91 L Hgb 11.8 L Hct 35.2 L MCV 90.0 MCH 30.2 MCHC 33.5 RDW Std Deviation 13.6 Plt Count 142 MPV 12.1 H Immature Gran % (Auto) 0.4 Neut % (Auto) 78.7 H Lymph % (Auto) 9.4 L [place] % (Auto) 8.5 Eos % (Auto) 2.9 Baso % (Auto) 0.1 Immature Gran # (Auto) 0.05 H Neut # (Auto) 11.11 H Lymph # (Auto) 1.33 [place] # (Auto) 1.20 H Eos # (Auto) 0.41 Baso # (Auto) 0.01 PT INR PTT (Actin FS) Sodium 136 Potassium 3.9 Chloride 98 Carbon Dioxide 26 Anion Gap 12 BUN 28 H Creatinine 1.3 H Estimated GFR/1.73 m2 40 BUN/Creatinine Ratio 22 Glucose 273 H Calculated Osmolality 287 Calcium 9.0 Total Bilirubin 0.40 AST 11 ALT 10 Alkaline Phosphatase 76 Creatine Kinase 65 Troponin T [id number] Pept 1677 H Total Protein 6.1 L Albumin 3.2 L Globulin 3.0 Albumin/Globulin Ratio 1.0 12/11/18 12/11/18 05:50 05:50 WBC RBC Hgb Hct MCV MCH MCHC RDW Std Deviation Plt Count MPV Immature Gran % (Auto) Neut % (Auto) Lymph % (Auto) [place] % (Auto) Eos % (Auto) Baso % (Auto) Immature Gran # (Auto) Neut # (Auto) Lymph # (Auto) [place] # (Auto) Eos # (Auto) Baso # (Auto) PT 14.6 INR 1.08 PTT (Actin FS) 38.5 Sodium Potassium Chloride Carbon Dioxide Anion Gap BUN Creatinine Estimated GFR/1.73 m2 BUN/Creatinine Ratio Glucose Calculated Osmolality Calcium Total Bilirubin AST ALT Alkaline Phosphatase Creatine Kinase Troponin T < 0.010 [id number]-M-[id number] Pept Total Protein Albumin Globulin Albumin/Globulin Ratio Orders Category Date Time Status Cardiac Monitoring DIRECTED Care 12/11/18 05:49 Active Oxygen Therapy- ED Nursing DIRECTED Care 12/11/18 05:49 Active Saline Loc NOW Care 12/11/18 05:49 Active CHEST-2 VIEWS [RAD] Stat Exams 12/11/18 05:49 Completed BLOOD CULTURE [BLDCUL] Stat Lab 12/11/18 06:46 Ordered CBC WITH ELECTRONIC DIFF [HEME] Stat Lab 12/11/18 05:50 Completed CK PROFILE [SP CHEM] Stat Lab 12/11/18 05:50 Completed COMPREHENSIVE METABOLIC PANEL [CHEM] Stat Lab 12/11/18 05:[address] Stat Lab 12/11/18 07:40 Uncollected PRO B-NATRIURETIC PEPTIDE Stat Lab 12/11/18 05:50 Completed PROTIME WITH INR [COAG] Stat Lab 12/11/18 05:50 Completed PTT [COAG] Stat Lab 12/11/18 05:50 Completed TROPONIN T Stat Lab 12/11/18 05:50 Completed Albuterol 2.5MG/Ipratrop 0.5MG [Duoneb (A & A)] Med 12/11/18 07:47 Once 3 ml INH NOW ONE Aspirin Med 12/11/18 05:48 Discontinued 300 mg NH NOW ONE Aspirin Med 12/11/18 05:48 Discontinued 325 mg PO NOW ONE CefTRIAXONE [Rocephin] 1 gm Med 12/11/18 06:46 Discontinued 0.9% Sodium Chloride Inj [Ns] 50 ml IV NOW Furosemide [Lasix] Med 12/11/18 07:19 Discontinued 40 mg IV NOW ONE Aerosol Treatments Routine Oth 12/11/18 07:47 Ordered Aerosol Treatments Stat Oth 12/11/18 07:47 Ordered CP/SOB/Palp >45 yrs of Age Stat Oth 12/11/18 05:48 Ordered EKG [EKG] Stat Ther 12/11/18 05:49 Draft report given to Dr. Sultana at 0715 Result Diagrams: 12/11/18 05:50 12/11/18 05:50 Departure - Departure Date of Disposition Decision: 12/11/18 Time of Disposition Decision: 07:48 DIAGNOSIS: Pulmonary infiltrates, COPD with acute exacerbation CHF (congestive heart failure) Qualifiers: Heart failure type: unspecified Heart failure chronicity: acute on chronic Qualified Code(s): I50.9 - Heart failure, unspecified Diabetes Qualifiers: Diabetes mellitus type: type 2 Diabetes mellitus [place] [employer] insulin use: unspecified skilled nursing insulin use status Diabetes mellitus complication status: with unspecified complications Qualified Code(s): E11.8 - Type 2 diabetes mellitus with unspecified complications Disposition: ADMITTED INPATIENT 09 Certified Medical Emergency: Emergent Condition: Stable Referrals and Follow-Ups: Eric Franks MD [Primary Care Provider] - - Critical Care Note This patient required my direct & personal management of CC.: No Attestation - Physician/ HARISH Attestation Patient care was provided by Advanced Practice Provider:: No The physician spent face to face time with patient:: Yes Advanced Practice Provider documentation review:: Supervising physician onsite and consulted in the evaluation and care of this patient. The physician did have a face to face encounter with the patient.
[2018-12-11] MEDS ORDERED: DUONEB (A & A) INH ONE (07:47)
[2018-12-11 08:25] LABS: INFLUENZA A NEGATIVE (NEGATIVE); INFLUENZA B NEGATIVE (NEGATIVE)
[2018-12-11] MEDS ORDERED: TYLENOL PO PRN (09:01)
[2018-12-11] MEDS ORDERED: DUONEB (A & A) INH PRN (09:01)
[2018-12-11] MEDS ORDERED: ZOFRAN IV PRN (09:01)
[2018-12-11] MEDS: SOLU-MEDROL IV SCH ×2 (10:55→17:07)
[2018-12-11] MEDS ORDERED: DUONEB (A & A) INH SCH (11:30)
[2018-12-11] MEDS: DUONEB (A & A) INH SCH ×4 (11:31→22:42)
[2018-12-11] MEDS ORDERED: FLU VACCINE IM ONE (11:44)
[2018-12-11] MEDS: HUMALOG (PARKWAY) SUBQ SCH ×3 (12:51→21:00)
[2018-12-11] MEDS: NORCO-7.5 PO PRN ×2 (12:51→22:55)
[2018-12-11 14:09] LABS: BILIRUBIN URINE NEGATIVE (NEGATIVE); BLOOD URINE NEGATIVE (NEGATIVE); COLOR YELLOW; KETONE URINE NEGATIVE (NEGATIVE); LEUKOCYTES URINE NEGATIVE (NEGATIVE); NITRITE URINE NEGATIVE (NEGATIVE); PROTEIN URINE TRACE mg/dL (NEGATIVE); SP GRAVITY URINE 1.015; UROBILINOGEN URINE NORMAL
[2018-12-11 14:11] LABS: CLARITY CLEAR (CLEAR); URINE BACTERIA 1+ /HFP; URINE EPITHELIAL CELLS <10 /HPF (<10); URINE SOURCE CLEAN CATCH; URINE WBC <10 /HPF (<10)
[2018-12-11] MEDS: ZITHROMAX PO SCH (17:07)
--- NOTE | 2018-12-11 18:38 | HISTORY AND PHYSICAL ---
ADDENDUM: Patient presented to the ER with increased cough, congestion, shortness of breath. Subsequently diagnosed with COPD exacerbation. Will admit her to the hospital, treat in the usual fashion, placed on breathing treatments, oxygen, steroids as needed. Does have a history of heart failure. We will observe for this. Please see full note by nurse practitioner. cc: Dion Sulatna MD
--- NOTE | 2018-12-11 19:16 | ECHO REPORT ---
ORDER DATE: 12/11/2018 INDICATION: A 78-year-old female patient with CHF, diabetes, hypertension. M-MODE MEASUREMENTS: Left ventricle end diastole: 4.1. Left ventricle end systole: 1.3. Posterior wall: 1.2. Interventricular septum: 1.3. Left atrium: 4.3. Aortic root: 2.6. SUMMARY OF 2-DIMENSIONAL IMAGIN. Left ventricular systolic function appears to be hyperdynamic. Ejection fraction estimated at 75% to 80%. Mild degree of concentric LVH. 2. The aortic valve is normal. Color flow mapping unremarkable. 3. The pulmonic valve is normal. Color flow mapping indicates a mild degree of regurgitation. 4. The tricuspid valve shows trace regurgitation. Pulmonary pressure appears to be on the order of 20 to 25 mmHg. 5. The mitral valve is normal. Color flow mapping indicates no significant regurgitation. There is dense calcification of the mitral annulus. 6. Pulsed wave Doppler of mitral inflow shows a tall E-wave and a short A-wave. 7. Tissue Doppler of septal and lateral mitral annulus averages 5 cm. 8. The E/A ratio is markedly elevated, suggesting elevation of the left atrial pressure. 9. The left atrium is significantly dilated. 10.The pulmonic valve is unremarkable. 11.There is no pericardial effusion. No masses, no thrombus. SUMMARY: This study shows: 1. Hyperdynamic left ventricle. 2. Significantly dilated left atrium. 3. Elevation of left atrial pressure. 4. Moderate calcification of mitral annulus. 5. Mild degree of concentric LVH. 6. Unremarkable aortic valve. 7. Pulmonary pressure appears to be normal. Clinical correlation recommended. cc: MD Dion Lucero MD
[2018-12-11] MEDS ORDERED: APRESOLINE PO SCH (21:00)
[2018-12-11] MEDS: TOPROL XL PO SCH (21:26)
[2018-12-11] MEDS: ELIQUIS PO SCH (21:26)
[2018-12-11] MEDS: NEURONTIN PO SCH (21:27)
[2018-12-11] MEDS: ATIVAN PO SCH (21:27)
--- NOTE | 2018-12-11 22:13 | HISTORY AND PHYSICAL ---
CHIEF COMPLAINT: Is shortness of breath, productive cough, and orthopnea for the last 24 hours. HISTORY OF PRESENT ILLNESS: This is a 78-year-old female with a history of atrial fibrillation, COPD, who presents to the emergency room complaining of 24 hours of increasing shortness of breath. Through the night she developed a productive cough with white sputum and orthopnea. She denied any fevers or chills. On arrival to the emergency room, she was afebrile with O2 saturation of 95% on room air. Chest x-ray revealed ill-defined right upper and lower lobe infiltrates consistent with pneumonia. She was given Rocephin in the emergency room and is being admitted for further evaluation and treatment. PAST MEDICAL HISTORY: Atrial fibrillation, atrial flutter, pacemaker placement, COPD, diabetes mellitus, hypertension. PAST SURGICAL HISTORY: Pacemaker placement, hysterectomy, cyst removed from kidney. SOCIAL HISTORY: She smokes about a pack a day. She denies alcohol or illicit drug use. ALLERGIES: No known drug allergies. HOME MEDICATIONS: Cordarone 200 mg p.o. daily, Norvasc 10 mg p.o. daily, clonidine 0.2 p.o. b.i.d., NovoLog 10 units subcutaneously 3 times a day as directed, Lantus SoloSTAR 15 units at bedtime, lisinopril 40 mg daily and Toprol-XL 50 mg b.i.d. REVIEW OF SYSTEMS: Discussed with patient with pertinent positives stated in the HPI. She denied any chest pain, palpitations, any syncope or dizziness, any fever, chills, recent weight loss or weight gain, night sweats, any nausea, vomiting, diarrhea, constipation, black or bloody vomitus or stools, any hematuria, dysuria, frequency, urgency. PHYSICAL EXAMINATION: GENERAL: This is a 78-year-old female who is sitting up in the bed in no distress. VITAL SIGNS: Blood pressure is 153/50 with a heart rate of 62, respirations are 18, temperature is 97.9 degrees, O2 saturations are 97% on room air. HEENT: Pupils are equal, round, react to light. EOMs are intact sclerae anicteric. Head is normocephalic, atraumatic. Mucous membranes are moist. NECK: Supple with trachea midline. CARDIOVASCULAR: Regular rate and rhythm. S1 and S2 appreciated. Peripheral pulses are palpable x4 extremities. PULMONARY: Breath sounds with wheezes scattered throughout. Chest rises and falls symmetrically with respiration. She has no increased work of breathing. GASTROINTESTINAL: Abdomen soft, nontender, nondistended. Bowel sounds in all 4 quadrants. NEUROLOGIC: She is alert, oriented x3. SKIN: Warm and dry. LABS: WBC is 14.1 with hemoglobin 11.8, hematocrit 35.2 and platelets of 142,000. Sodium is 136, potassium 3.9, BUN 28, creatinine 1.3 with blood sugars ranging from 270 to 380. Troponin was negative. ProBNP is 1677. Influenza A and B are negative. Blood cultures are pending. Chest x- ray revealed right upper and right lower lobe pneumonia. EKG reveals atrial paced rhythm at a rate of 62. ASSESSMENT AND PLAN: This is a 78-year-old female who is sitting up in the bed in no distress. 1. Right upper and lower lobe pneumonia. 2. Leukocytosis secondary to #1. 3. Chronic kidney disease with a baseline creatinine of 1.3. 4. Dyspnea, orthopnea secondary to chronic obstructive pulmonary disease. 5. Chronic obstructive pulmonary disease acute on chronic exacerbation. 6. Atrial fibrillation. PLAN: The patient has been admitted to the medical surgery floor and placed on telemetry which will continue. Will give supplemental oxygen if needed. DuoNeb q.4 hours and q.2 hours p.r.n. Start incentive spirometer. Will give steroids to taper. She will be placed on pattern blood glucose with sliding scale insulin. She will be placed on diabetic diet. We will continue Rocephin and add azithromycin for antibiotic coverage and further antibiotics will be culture driven. For DVT prophylaxis will continue her Eliquis and for GI prophylaxis we will use Prilosec. Further treatments pending hospital course. Dictated by FANNY Andrade for Dion Sultana MD This chart was documented by, FANNY Andrade and accurately reflects the services performed, treatment plan and medical decisions as attested by the providers signature Dion Sultana MD. cc: FANNY Andrade MD
[2018-12-12] MEDS: SOLU-MEDROL IV SCH (00:59)
[2018-12-12] MEDS: HUMALOG (PARKWAY) SUBQ SCH ×10 (01:02→20:41)
--- NOTE | 2018-12-12 02:46 | HISTORY AND PHYSICAL ---
ADDENDUM: Patient seen and examined by myself. Full note dictated and discussed with nurse practitioner. Patient presented to the ER with increased cough, congestion, increased shortness of breath. Subsequently diagnosed with a COPD exacerbation. We will admit her, treat her in the usual fashion. Further orders as needed. cc: Dion Sultana MD
[2018-12-12] MEDS: DUONEB (A & A) INH SCH ×6 (02:57→23:01)
[2018-12-12 05:59] LABS: HEMATOCRIT 37.3 % (37.0-47.0); HEMOGLOBIN 12.3 g/dL (12.0-16.0); MCH 29.7 PG (27-31); MCV 90.1 FL (81-99); MPV 12.2 FL (7.4-10.4); RBC 4.14 XMIL (4.2-5.4); RDW 13.7 % (11.5-14.5); WBC 14.11 X1000 (4.8-10.8)
[2018-12-12 06:25] LABS: ALBUMIN 3.1 g/dL (3.5-5.0); CALCIUM 9.5 mg/dL (8.8-10.2); CREATININE 1.2 mg/dL (0.5-0.9); POTASSIUM 4.1 mmol/L (3.5-5.1); TOTAL BILIRUBIN 0.2 mg/dL (0.20-1.00); TOTAL PROTEIN 7.4 g/dL (6.3-8.3)
[2018-12-12] MEDS: PRILOSEC PO SCH (06:26)
[2018-12-12] MEDS: PRINIVIL PO SCH (08:34)
[2018-12-12] MEDS: CORDARONE PO SCH (08:34)
[2018-12-12] MEDS: TOPROL XL PO SCH ×2 (08:34→20:42)
[2018-12-12] MEDS: ELIQUIS PO SCH ×2 (08:35→20:42)
[2018-12-12] MEDS: NEURONTIN PO SCH ×2 (08:35→20:42)
[2018-12-12] MEDS: CATAPRES PO SCH ×2 (08:35→20:42)
[2018-12-12] MEDS: NORVASC PO SCH (08:35)
[2018-12-12] MEDS: ZITHROMAX PO SCH (08:35)
[2018-12-12] MEDS: ALDACTONE PO SCH (08:35)
[2018-12-12] MEDS: ROCEPHIN 1 GM in NS 50 ML IV SCH (08:36)
[2018-12-12] MEDS ORDERED: SOLU-MEDROL IV SCH (09:00)
[2018-12-12] MEDS ORDERED: HUMALOG (PARKWAY) SUBQ ONE (14:11)
[2018-12-12] MEDS: NORCO-7.5 PO PRN (14:29)
[2018-12-12] MEDS: BASAGLAR SUBQ SCH (20:40)
[2018-12-12] MEDS: ATIVAN PO SCH (20:42)
--- NOTE | 2018-12-12 23:02 | PROGRESS NOTE ---
DATE: 12/12/2018 SUBJECTIVE: Patient notes overall her breathing is improving. However, she is not quite back to her baseline. PHYSICAL EXAMINATION: Vital Signs: Temperature 97.9 degrees, pulse 100, respiratory rate 18, BP 190/84. General: Patient is awake, alert. She is in minimal respiratory distress sitting up in the bed. HEENT: Normocephalic. Neck: Supple. Cardiovascular: Regular rate. Chest: Clear. No current crackles. No wheezing currently although she did just receive a breathing treatment. Abdomen: Soft, nondistended. Extremities: Moves all extremities. Neurologic: No changes. ASSESSMENT: 1. Chronic obstructive pulmonary disease with exacerbation. 2. Right upper and lower lobe pneumonia. 3. Leukocytosis, improving. 4. Diabetes. 5. Atrial fibrillation. PLAN: The patient is noted to have elevated blood sugars. This is likely secondary to her Solu- Medrol that she is receiving. We will stop the Solu-Medrol and we will follow. Her breathing is improved. We will continue breathing treatments, antibiotics for her pneumonia and oxygen. Hopefully, she can discharge home over the next 1 or 2 days. cc: Dion Sultana MD
[2018-12-13] MEDS: DUONEB (A & A) INH SCH ×6 (02:40→23:07)
[2018-12-13] MEDS ORDERED: INSULIN PEN NEEDLES MISC PRN (06:33)
[2018-12-13] MEDS: HUMALOG (PARKWAY) SUBQ SCH ×8 (07:00→21:40)
[2018-12-13] MEDS: PRILOSEC PO SCH (07:40)
[2018-12-13] MEDS: CATAPRES PO SCH ×2 (08:50→20:37)
[2018-12-13] MEDS: ALDACTONE PO SCH (08:50)
[2018-12-13] MEDS: ELIQUIS PO SCH ×2 (08:50→20:37)
[2018-12-13] MEDS: ROCEPHIN 1 GM in NS 50 ML IV SCH (08:50)
[2018-12-13] MEDS: NEURONTIN PO SCH ×2 (08:50→20:37)
[2018-12-13] MEDS: PRINIVIL PO SCH (08:50)
[2018-12-13] MEDS: NORVASC PO SCH (08:51)
[2018-12-13] MEDS: TOPROL XL PO SCH ×2 (08:51→20:37)
[2018-12-13] MEDS: CORDARONE PO SCH (08:51)
[2018-12-13] MEDS: ZITHROMAX PO SCH (08:51)
[2018-12-13] MEDS ORDERED: SOLU-MEDROL IV ONE (11:34)
[2018-12-13] MEDS: ROBITUSSIN-DM PO PRN ×2 (12:31→20:37)
--- NOTE | 2018-12-13 19:20 | PROGRESS NOTE ---
DATE: 12/13/2018 SUBJECTIVE: The patient notes that her cough seems worse this morning. Shortness of breath seems a little worse, as well. The patient denies any chest pains or palpitations. Denies any fevers or chills currently. PHYSICAL EXAMINATION: Vital Signs: Temp 97, pulse 62, respiratory 22, BP 174/61. General: Patient is awake, very pleasant to talk with. HEENT: Normocephalic. Neck: Supple. Cardiovascular: Regular rate. No murmurs. Chest: Decreased breath sounds. Minimal wheezing bilaterally. No crackles. Abdomen: Soft, nondistended. Extremities: Moves all extremities. ASSESSMENT: 1. COPD with exacerbation. 2. Diabetes with marked elevated blood sugar. 3. Right upper lobe and right lower lobe pneumonia. 4. Leukocytosis. 5. Chronic kidney disease with a baseline at 1.3. 6. History of atrial fibrillation. 7. Others. PLAN: We stopped patient's Solu-Medrol yesterday due to her elevation in her blood sugars. We will give her one more dose of Solu-Medrol 40 mg IV x 1 today and again we will continue to follow blood sugars. Add Robitussin. Continue breathing treatments, oxygen, antibiotics and nebulized treatments. Further orders per her symptoms. cc: Dion Sultana MD
[2018-12-13] MEDS: ATIVAN PO SCH (20:37)
[2018-12-13] MEDS: BASAGLAR SUBQ SCH (21:24)
[2018-12-14] MEDS: DUONEB (A & A) INH SCH ×6 (03:28→23:22)
[2018-12-14] MEDS: PRILOSEC PO SCH (06:28)
[2018-12-14] MEDS: HUMALOG (PARKWAY) SUBQ SCH ×10 (06:29→20:22)
[2018-12-14] MEDS: NORVASC PO SCH (08:44)
[2018-12-14] MEDS: PRINIVIL PO SCH (08:44)
[2018-12-14] MEDS: NEURONTIN PO SCH ×2 (08:45→20:10)
[2018-12-14] MEDS: ZITHROMAX PO SCH (08:45)
[2018-12-14] MEDS: CORDARONE PO SCH (08:45)
[2018-12-14] MEDS: ELIQUIS PO SCH ×2 (08:45→20:10)
[2018-12-14] MEDS: ROCEPHIN 1 GM in NS 50 ML IV SCH (08:45)
[2018-12-14] MEDS: ALDACTONE PO SCH (08:45)
[2018-12-14] MEDS: CATAPRES PO SCH ×2 (08:45→20:10)
[2018-12-14] MEDS: TOPROL XL PO SCH ×2 (08:45→20:10)
[2018-12-14] MEDS: ROBITUSSIN-DM PO PRN (12:26)
[2018-12-14] MEDS ORDERED: ROBITUSSIN-AC PO PRN (19:45)
[2018-12-14] MEDS: ATIVAN PO SCH (20:10)
[2018-12-14] MEDS: BASAGLAR SUBQ SCH (20:11)
[2018-12-15] MEDS: HUMALOG (PARKWAY) SUBQ SCH ×7 (00:17→17:09)
[2018-12-15] MEDS: DUONEB (A & A) INH SCH ×3 (03:23→12:50)
--- NOTE | 2018-12-15 03:27 | DISCHARGE SUMMARY ---
ADMISSION DATE: 12/11/2018 DISCHARGE DATE: DISCHARGE DIAGNOSES: 1. Chronic obstructive pulmonary disease exacerbation. 2. Type 2 diabetes with hyperglycemia associated with corticosteroids. 3. Right upper lobe and right lower lobe pneumonia. 4. Chronic renal failure. 5. History of atrial fibrillation. HOSPITAL COURSE: Briefly, this 78-year-old female was admitted on the [address] Sultana and Yenni Flores. She had shortness of breath and cough. Chest x-ray showed pneumonia. She was 95%, though, on room air. She did have leukocytosis of 14,000. Echocardiogram was obtained and showed dilated left atrium, hyperdynamic left ventricle, and overall seemed to be doing okay. EF was 75 to 80 percent. She did develop steroid induced hyperglycemia, sugars up into the 400s. Dr. Sultana took off steroids and they have improved 200s to 300s. Overall, the patient was felt stable for discharge. DISCHARGE MEDICATIONS: Amlodipine 10 daily, clonidine 0.2 b.i.d., NovoLog 10 t.i.d., glargine 15 daily, lisinopril 40 daily (I am going to switch her to losartan just because of her COPD), Toprol- XL 50 b.i.d., and amiodarone 200 daily. I am going to give her breathing treatments, DuoNebs q.6. We may need to consider Xopenex just because of her tachycardia. She is also on azithromycin and Rocephin. Azithromycin, she has been on 4 days so she will need 1 more day and the Rocephin, she has been on for about 4 to 5 days. We will give her another 7 days of treatment. DISCHARGE INSTRUCTIONS: Told to follow up with her PCP, who is Dr. Eric Franks. Return for worsening shortness of breath or cough. Recommend followup chest x-ray 4 to 6 weeks. This is a 32 minute discharge. cc: Lukas Ramirez MD
[2018-12-15] MEDS: PRILOSEC PO SCH (06:40)
[2018-12-15] MEDS: NORCO-7.5 PO PRN (07:09)
[2018-12-15 10:32] LABS: BASO# 0.03 X1000 (0.0-0.2); BASO% 0.2 % (0.0-0.8); EOS# 0.33 X1000 (0.0-0.7); EOS% 2.2 % (0.0-10.0); HEMATOCRIT 33.9 % (37.0-47.0); HEMOGLOBIN 11.1 g/dL (12.0-16.0); IMM GRAN# 0.86 X1000 (0.0-0.04); IMM GRAN% 5.6 % (0.0-0.5); LYMPH# 1.27 X1000 (1.2-3.4); LYMPH% 8.3 % (20.5-51.1); MCH 29.6 PG (27-31); MCHC 32.7 g/dL (33-37); MCV 90.4 FL (81-99); MONO# 0.82 X1000 (0.11-0.59); MONO% 5.4 % (1.7-9.3); MPV 11.9 FL (7.4-10.4); NEUT# 11.93 X1000 (1.4-6.5); NEUT% 78.3 % (42.2-75.2); PLT 223 X1000 (130-400); RBC 3.75 XMIL (4.2-5.4); WBC 15.24 X1000 (4.8-10.8)
[2018-12-15 11:07] LABS: EOS 2 % (1-10); LYMPHS 7 % (21-51); MONO 5 % (1-9); NRBC 1 % (0-0); SEGS 86 % (42-75)
[2018-12-15] MEDS: ROCEPHIN 1 GM in NS 50 ML IV SCH (12:32)
[2018-12-15] MEDS: TOPROL XL PO SCH (12:33)
[2018-12-15] MEDS: ALDACTONE PO SCH (12:33)
[2018-12-15] MEDS: PRINIVIL PO SCH (12:33)
[2018-12-15] MEDS: ELIQUIS PO SCH (12:33)
[2018-12-15] MEDS: CATAPRES PO SCH (12:33)
[2018-12-15] MEDS: ZITHROMAX PO SCH (12:33)
[2018-12-15] MEDS: NORVASC PO SCH (12:33)
[2018-12-15] MEDS: CORDARONE PO SCH (12:33)
[2018-12-15] MEDS: NEURONTIN PO SCH (12:33)
[2018-12-15 13:26] VITALS: BP 172/75
[2018-12-15] MEDS: ROBITUSSIN-DM PO PRN (13:36)
--- NOTE | 2018-12-15 16:08 | DISCHARGE SUMMARY ---
ADMISSION DATE: 12/14/2018 DISCHARGE DATE: 12/15/2018 DISCHARGE ADDENDUM The patient is doing well. She is breathing well. No major issues. Her lungs are clear. Her white count has jumped up a little bit to 15, but she has been on steroids. There was concern over hypoxia, but when she was evaluated her saturations never got below 91% on room air and with exertion they actually improved to about 95%, so she was felt stable for discharge. Discharge medications and entire plan was dictated yesterday. Please refer to that and she will follow up with her PCP and go from there. I am going to give her some nasal decongestants and an Afrin and some other decongestants. cc: Lukas Ramirez MD
== END 2018-12-15 17:22 | disposition home health service (06) | DRG 190 ==
LOC: P.MEDSURG 04:53 → P.ED 04:53 → SUATTDRO 12-14 07:35
PROVIDERS: ATTEND Internal Medicine
CPT/HCPCS: 71020; 71046; 80053; 81001; 82009; 82550; 82947; 82948; 83880; 84484; 85025; 85027; 85610; 85730; 87040; 87275; 87276; 87804; 93005; 93306; 94640; 94761; 94799; 96374; 96375; 99285; A9270; J0696; J1815; J1940; J2920; J2930; XXXXX

== ENCOUNTER 2019-03-04 09:56 | Inpatient (IN) ==
[2019-03-04 10:51] LABS: BILIRUBIN URINE NEGATIVE (NEGATIVE); BLOOD URINE 1+ (NEGATIVE); CLARITY CLEAR (CLEAR); COLOR YELLOW; KETONE URINE NEGATIVE (NEGATIVE); LEUKOCYTES URINE TRACE (NEGATIVE); NITRITE URINE NEGATIVE (NEGATIVE); PROTEIN URINE 2+(100 mg/dL) mg/dL (NEGATIVE); URINE BACTERIA 3+ /HFP; URINE CAST NONE SEEN /LPF; URINE CRYSTAL NONE SEEN /HPF; URINE EPITHELIAL CELLS >10 /HPF (<10); URINE RBC <10 /HPF (<10); URINE SOURCE CLEAN CATCH; URINE YEAST NONE SEEN /HPF; UROBILINOGEN URINE NORMAL
[2019-03-04] MEDS ORDERED: HUMULIN R IV ONE (10:51)
[2019-03-04] MEDS ORDERED: NS 1,000 ML IV ONE ×2 (10:51→14:33)
[2019-03-04] MEDS ORDERED: ROCEPHIN 1 GM in NS 50 ML IV ONE (10:52)
[2019-03-04 11:11] LABS: BLOOD TYPE ARTERIAL; HCO3-(ACT) 26.3 mmoll (20.0-26.0); METHB 1.1 % (0.0-1.5); O2(CT) 13.3 mL/dL (15.0-23.0); PCO2(98.6) 34 mmHg (35-45); PO2(98.6) 56 mmHg (60-100); SAMPLE BLOOD; THB 10.6 g/dL (11.5-17.4); pH(98.6) 7.48 (7.35-7.45)
[2019-03-04 11:15] LABS: O2HB 89.2 % (95.0-99.0)
[2019-03-04 11:16] LABS: ALLEN TEST YES; MODALITY ROOM AIR
[2019-03-04 11:37] LABS: EOS# 0.04 X1000 (0.0-0.7); EOS% 0.6 % (0.0-10.0); HEMATOCRIT 32.3 % (37.0-47.0); HEMOGLOBIN 10.5 g/dL (12.0-16.0); IMM GRAN# 0.02 X1000 (0.0-0.04); IMM GRAN% 0.3 % (0.0-0.5); LYMPH# 0.74 X1000 (1.2-3.4); LYMPH% 10.3 % (20.5-51.1); MCH 29.4 PG (27-31); MCHC 32.5 g/dL (33-37); MCV 90.5 FL (81-99); MONO# 0.65 X1000 (0.11-0.59); NEUT# 5.74 X1000 (1.4-6.5); NEUT% 79.8 % (42.2-75.2); PLT 165 X1000 (130-400); RBC 3.57 XMIL (4.2-5.4); RDW 14.5 % (11.5-14.5); WBC 7.19 X1000 (4.8-10.8)
--- NOTE | 2019-03-04 11:38 | Diag Imaging Result Doc PS360 ---
EXAM: FLAT/UPRIGHT ABD/1 VIEW CHEST INDICATION: EPIGASTRIC PAIN TECHNIQUE: 3 views COMPARISON: Chest radiograph dated 12/11/2018 FINDINGS: Stool is seen in the right colon. The transverse colon and the proximal portion of the descending colon is moderately distended with gas. There is nothing that is specific for obstruction. There is no evidence of large volume free abdominal gas. Iliac stent is noted on the left. There is an opacity at the left lung base indicating atelectasis and/or pneumonia. It is obscuring the left costophrenic angle. There may be a small left effusion as well. There is no evidence of pneumothorax. The heart is mildly prominent but stable. The pacemaker is in stable position. Central vasculature is unremarkable. IMPRESSION: 1.Moderate gaseous distention of the transverse and proximal descending colon, nonspecific. 2.Left basilar opacity indicating atelectasis and/or pneumonia. Electronically signed by Nate Gallego 03/04/2019 11:36 AM
[2019-03-04 11:55] LABS: CALCIUM 8.3 mg/dL (8.8-10.2); CREATININE 1.5 mg/dL (0.5-0.9); MAGNESIUM 2.4 mg/dL (1.5-2.7); POTASSIUM 4.5 mmol/L (3.5-5.1); TOTAL BILIRUBIN 0.4 mg/dL (0.20-1.00); TOTAL PROTEIN 6.5 g/dL (6.3-8.3)
[2019-03-04] MEDS ORDERED: HUMULIN R (PARKWAY) ONE (12:11)
--- NOTE | 2019-03-04 13:25 | PROVIDER DOCUMENTATION ---
This chart was entered by Rosalina Devlin Scribe, acting as scribe for Tien Hensley MD. HPI-General Adult - General Chief Complaint: General Adult Stated Complaint: SOB / BACK PAIN Time Seen by Provider: 03/04/19 10:29 Source: patient Allergies/Adverse Reactions: Patient Allergies Allergy/AdvReac Type Severity Reaction Status Date / Time No Known Allergies Allergy Verified 02/23/18 05:56 Home Medications: Home Medication List Medication Instructions Recorded Confirmed Last Taken Type Clonidine [Catapres] 0.2 mg PO BID 09/08/14 12/11/18 02/23/18 04:15 History Insulin Aspart [Novolog] 10 unit SQ TID PRN PRN 09/08/14 12/11/18 02/22/18 19:00 History 2 units Amiodarone [Cordarone] 200 mg PO DAILY #30 tablet 08/22/16 12/11/18 02/23/18 04:15 Rx Amlodipine Besylate 10 mg PO DAILY 11/12/17 12/11/18 02/22/18 20:00 History Insulin Glargine,Hum.rec.anlog 15 unit SQ HS 11/12/17 12/11/18 02/22/18 19:00 History [Lantus Solostar] 12 units Metoprolol Succinate E.r. [Toprol 50 mg PO BID 12/11/18 12/11/18 Unknown History Xl] Albuterol 2.5MG/Ipratrop 0.5MG 3 ml INH RTQ6H #120 neb 12/14/18 Unknown Rx [Duoneb] CefDINIR [Omnicef] 300 mg PO BID #14 cap 12/14/18 Unknown Rx Losartan [Cozaar] 100 mg PO DAILY #30 tab 12/14/18 Unknown Rx Guaifenesin/Codeine [Robitussin-AC] 5 ml PO Q4H PRN PRN #250 udc 12/15/18 Unknown Rx - History of Present Illness -Gen Adult Nature of Presenting Problems: Patient is a 78 year old female who presents with multiple complaints. Patient states symptoms of epigastric abdominal pain, nausea, constipation, weakness, upper back pain, shortness of breath, fever, loss of appetite, cough, and urinary odor that started 5 days ago. Denies vomiting and diarrhea. Reports she is diabetic and has not been checking her blood sugar. Location of Pain/Injury: reports: abdomen (epigastric) Pain Radiation: reports: no radiation Quality of Pain: reports: cramping Severity: reports: mild Onset/Duration: reports: 5 days ago Timing: reports: still present Context/Activities at Onset: reports: light activity Associated Symptoms: reports: back/neck pain (upper back pain), constipation, cough, fever/chills (fever), genitourinary problems (urinary odor), loss of appetite, nausea, shortness of breath, weakness Similar Symptoms Previously?: Yes (present for 5 days. ) Recently seen or treated by another doctor?: No Review of Systems - Adult - REVIEW OF SYSTEMS - ADULT Constitutional: reports: see HPI, fever. denies: chills, fatique Eyes: reports: no symptoms reported Ears, Nose, Mouth & Throat: reports: no symptoms reported Cardiovascular: reports: no symptoms reported. denies: chest pain, irregular heart rate, palpitations Respiratory: reports: see HPI, cough, shortness of breath. denies: wheezing Gastrointestinal: reports: see HPI, abdominal pain (epigastric), constipation, nausea, poor appetite. denies: diarrhea, vomiting Genitourinary: reports: see HPI, other (urinary odor). denies: dysuria, hematuria Musculoskeletal: reports: see HPI, back pain (upper), muscle weakness. denies: muscle aches, neck pain Integumentary: reports: no symptoms reported Neurological: reports: no symptoms reported Psychiatric: reports: no symptoms reported Endocrine: reports: no symptoms reported Hematologic/Lymphatic: reports: no symptoms reported Allergic/Immunologic: reports: no symptoms reported All Other Systems: Reviewed and Negative Past History - Adult - PAST MEDICAL HISTORY-ADULT Review of Records: reports: Nursing Assessment Review, Medications Reviewed, Social history reviewed & non-contributory. Major Childhood Illnesses: reports: denies history Cardiovascular: reports: CAD, CHF, HTN, pacemaker Respiratory: reports: COPD Gastrointestinal: reports: denies history Obstetrical/Gynecological: reports: denies history Genitourinary: reports: denies history Musculoskeletal: reports: denies history Neurological: reports: denies history Psychiatric: reports: anxiety Endocrine/Immune: reports: Diabetes, thyroid disorder Other Conditions: reports: denies history - PRIOR SURGERIES/PROCEDURES Surgical/Procedure History: reports: hysterectomy, other (THYROID) - PRIOR HOSPITALIZATIONS Prior Hospitalizations: reports: for other non-related - IMMUNIZATION STATUS Childhood Immunizations: See Nurse Assessment Flu Vaccine: See Nurse Assessment - FAMILY HISTORY Family History: reviewed, not pertinent - SOCIAL HISTORY Smoking: cigarettes, less than 1 pack/day Provider spent 3-5 mins advising pt. on dangers of tobacco.: Discussed manners to quit use, and f/u contacts for add'l counseling. Substance Use: denies Physical Exam-General - PHYSICAL EXAM-ADULT Initial Vital Signs Reviewed: Yes - CONSTITUTIONAL General Appearance: alert, no apparent distress. negative: lethargic, slow to respond - RESPIRATORY Respiratory: chest non-tender, rales (bilateral bases). negative: stridor, wheezing - CARDIOVASCULAR Cardiovascular: normal peripheral pulses, regular rate, rhythm. negative: tachycardia, systolic murmur - GASTROINTESTINAL (ABDOMEN) Abdominal Exam: normal bowel sounds, non tender, soft. negative: guarding, rebound - MUSCULOSKELETAL Extremity: non-tender, normal inspection. negative: deformity, erythema - SKIN Integumentary: normal color, normal turgor, warm/dry. negative: cyanosis, ecchymosis, erythema - NEUROLOGIC Neurologic: grossly normal. negative: aphasia, facial droop - PSYCHIATRIC Psych/Mental Status: normal mood/affect, oriented x 3. negative: anxious Progress - PLAN OF CARE/RESULTS Progress/Plan/Lab Results: Vital Signs - 8 hr 03/04/19 09:59 Temperature 99 F Pulse Rate 67 Respiratory Rate 18 Blood Pressure 118/73 O2 Sat by Pulse Oximetry 99 Laboratory Results - last 24 hr 03/04/19 10:21 POC Glucose 347 H Orders Category Date Time Status Finger Stick Blood Sugar (ED) DIRECTED Care 03/04/19 10:[address] W/POSS RFLX CULT [URINALYSIS] Stat Lab 03/04/19 10:15 Received Result Diagrams: 03/04/19 11:15 03/04/19 11:15 - XRAY 1 XRAY Study: Chest, Abdomen Impression: See EMR Report (EXAM: FLAT/UPRIGHT ABD/1 VIEW CHEST INDICATION: EPIGASTRIC PAIN TECHNIQUE: 3 views COMPARISON: Chest radiograph dated 12/11/2018 FINDINGS: Stool is seen in the right colon. The transverse colon and the proximal portion of the descending colon is moderately distended with gas. There is nothing that is specific for obstruction. There is no evidence of large volume free abdominal gas. Iliac stent is noted on the left. There is an opacity at the left lung base indicating atelectasis and/or pneumonia. It is obscuring the left costophrenic angle. There may be a small left effusion as well. There is no evidence of pneumothorax. The heart is mildly prominent but stable. The pacemaker is in stable position. Central vasculature is unremarkable. IMPRESSION: 1.Moderate gaseous distention of the transverse and proximal descending colon, nonspecific. 2.Left basilar opacity indicating atelectasis and/or pneumonia. Electronically signed by Nate Gallego 03/04/2019 11:36 AM 03/04/19 1136 Interpreting Physician: Nate Gallego MD Dictated Date/Time: 03/04/19 1132 cc: Tien Hensley MD; Eric Franks MD) - CONSULTS/PCP/HOSPITALIST Notification #1 *Consult/PCP/Hospitalist*: Dr. Sultana Time Discussed: 13:03 Reason/Comments: Dr. Hensley consulted with Dr. Sultana about patient Consult Disposition: Admit Departure - Departure Date of Disposition Decision: 03/04/19 Time of Disposition Decision: 13:03 DIAGNOSIS: LLL pneumonia, Hypoventilation, Anemia, Weak, Diabetes mellitus with hyperglycemia, COPD with acute exacerbation Disposition: ADMITTED INPATIENT 09 Certified Medical Emergency: Emergent Condition: Stable Referrals and Follow-Ups: Eric Franks MD [Primary Care Provider] - - Critical Care Note This patient required my direct & personal management of CC.: No Attestation - Physician/ HARISH Attestation The physician spent face to face time with patient:: Yes Advanced Practice Provider documentation review:: Supervising physician onsite and consulted in the evaluation and care of this patient. The physician did have a face to face encounter with the patient. This chart was documented by the indicated scribe, (Rosalina Devlin Scribe) and accurately reflects the services I performed and decisions made by me, Tien Hensley MD, as attested by the provider's signature.
[2019-03-04 13:30] LABS: INFLUENZA A NEGATIVE (NEGATIVE); INFLUENZA B NEGATIVE (NEGATIVE)
[2019-03-04] MEDS ORDERED: MORPHINE IV PRN (14:33)
[2019-03-04] MEDS ORDERED: ZOFRAN IV PRN (14:33)
[2019-03-04] MEDS: DUONEB (A & A) INH SCH ×3 (16:35→23:22)
[2019-03-04] MEDS: HUMALOG (PARKWAY) SUBQ SCH ×2 (17:26→21:43)
[2019-03-04] MEDS: FLAGYL PO SCH (18:46)
[2019-03-04] MEDS: NEURONTIN PO SCH (20:26)
[2019-03-04] MEDS: ELIQUIS PO SCH (20:26)
[2019-03-04] MEDS: ATIVAN PO SCH (20:26)
[2019-03-04] MEDS: TYLENOL PO PRN (22:26)
--- NOTE | 2019-03-05 01:00 | HISTORY AND PHYSICAL ---
CHIEF COMPLAINT: Cough, shortness of breath. HISTORY OF PRESENT ILLNESS: Patient is a 71-year-old female who presented to the hospital with cough, congestion, constipation, nausea. Denies any dysuria or urinary frequency. States she has been short of breath. She is feeling increased fatigue. Notes also that she has had difficulty urinating and at times has a strong odor. REVIEW OF SYSTEMS: General: As noted. Difficult to obtain although patient is very pleasant to talk with. HEENT: Normocephalic. Neck: Supple. Cardiovascular: Regular rate. Chest: Clear but distant. No current crackles. Abdomen: Soft. Extremities: Moves all extremities. PAST MEDICAL HISTORY: Significant for known coronary artery disease, congestive heart failure, hypertension, pacemaker, COPD, diabetes, hypothyroidism, hysterectomy, and thyroid surgery. LABS: Reviewed. ASSESSMENT: 1. Left basilar pneumonia. 2. Colitis. 3. Diabetes with hyperglycemia. 4. Acute on chronic renal failure. 5. Chronic systolic congestive heart failure. 6. Chronic obstructive pulmonary disease. PLAN: We will continue patient in the hospital. Continue to follow. Place her on antibiotics, oxygen and breathing treatments. Further orders as needed. cc: Dion Sultana MD
[2019-03-05] MEDS: DUONEB (A & A) INH SCH ×3 (03:18→11:24)
[2019-03-05 06:04] LABS: HEMATOCRIT 30.3 % (37.0-47.0); HEMOGLOBIN 9.8 g/dL (12.0-16.0); MCH 29.4 PG (27-31); MCHC 32.3 g/dL (33-37); MPV 12.1 FL (7.4-10.4); RBC 3.33 XMIL (4.2-5.4); RDW 14.7 % (11.5-14.5); WBC 7.99 X1000 (4.8-10.8)
[2019-03-05 06:26] LABS: ALBUMIN 2.6 g/dL (3.5-5.0); CALCIUM 7.5 mg/dL (8.8-10.2); CREATININE 1.3 mg/dL (0.5-0.9); MAGNESIUM 2.2 mg/dL (1.5-2.7); POTASSIUM 3.9 mmol/L (3.5-5.1); TOTAL BILIRUBIN 0.4 mg/dL (0.20-1.00); TOTAL PROTEIN 5.9 g/dL (6.3-8.3)
[2019-03-05] MEDS: HUMALOG (PARKWAY) SUBQ SCH ×4 (06:42→21:10)
[2019-03-05] MEDS ORDERED: ZITHROMAX PO SCH (09:00)
[2019-03-05] MEDS ORDERED: COZAAR PO SCH (09:00)
[2019-03-05] MEDS: CORDARONE PO SCH (09:04)
[2019-03-05] MEDS: NEURONTIN PO SCH ×2 (09:05→21:10)
[2019-03-05] MEDS: FLAGYL PO SCH ×3 (09:05→17:08)
[2019-03-05] MEDS: ELIQUIS PO SCH ×2 (09:06→21:10)
[2019-03-05] MEDS ORDERED: ROCEPHIN 1 GM in NS 50 ML IV SCH (10:00)
[2019-03-05] MEDS: ATIVAN PO SCH ×2 (10:35→21:10)
[2019-03-05] MEDS ORDERED: VANCOMYCIN IV PER PHARMACY MISC SCH (11:30)
[2019-03-05] MEDS ORDERED: VANCOMYCIN 1,750 MG in NS 250 ML IV ONE (12:00)
[2019-03-05] MEDS ORDERED: HUMALOG (PARKWAY) SUBQ ONE (13:42)
[2019-03-05] MEDS: ZOFRAN IV PRN (13:58)
[2019-03-05] MEDS ORDERED: ATIVAN IV ONE (14:11)
[2019-03-05] MEDS ORDERED: NS 1,000 ML IV ONE (14:20)
[2019-03-05 14:28] LABS: BE -4.3 mmoll (-3.0-3.0); BLOOD TYPE ARTERIAL; HCO3-(ACT) 21.5 mmoll (20.0-26.0); METHB 0.7 % (0.0-1.5); O2(CT) 14.9 mL/dL (15.0-23.0); O2HB 92.9 % (95.0-99.0); PCO2(98.6) 23 mmHg (35-45); PO2(98.6) 60 mmHg (60-100); SAMPLE BLOOD; SAO2 96.4 % (95.0-100.0); THB 11.4 g/dL (11.5-17.4); pH(98.6) 7.49 (7.35-7.45)
[2019-03-05 14:32] LABS: ALLEN TEST YES; MODALITY ROOM AIR
[2019-03-05] MEDS ORDERED: NS 500 ML IV ONE (14:45)
[2019-03-05 14:56] LABS: AGAP 16; BUN 21 mg/dL (8-22); CALCIUM 8.2 mg/dL (8.8-10.2); CHLORIDE 100 mmol/L (98-107); COSMO 296; CREATININE 1.4 mg/dL (0.5-0.9); ESTIMATED GFR 36; SODIUM 137 mmol/L (136-145); TCO2 22 mmol/L (25-35)
[2019-03-05 14:58] LABS: GLUCOSE 450 mg/dL (70-104)
[2019-03-05 15:03] LABS: ACETONE SERUM NEGATIVE (NEGATIVE)
[2019-03-05] MEDS ORDERED: HUMULIN R (PARKWAY) IV ONE (15:41)
[2019-03-05 16:01] LABS: HEMOGLOBIN A1C 9.8 % (4.8-6.0)
--- NOTE | 2019-03-05 16:41 | PROGRESS NOTE ---
DATE: 03/05/2019 SUBJECTIVE: The patient states that she is feeling okay. She states that her breathing has actually improved. Denies any current fever, although does note that she had a fever overnight. She is having a cough and shortness of breath. OBJECTIVE: Vital Signs: Temperature is 97.7, T-max 101.2 degrees, pulse 65, respiratory 20, BP 133/57, saturation 94% on 3 L. General: The patient is very pleasant to talk with. She does not appear to be in as much distress as she was last night in the ER. HEENT: Normocephalic. Neck: Supple. Cardiovascular: Regular rate. Chest: Positive wheezing mildly no crackles. Mildly labored. Abdomen: Soft, nondistended, obese, nontender. Extremities: Moves all extremities. No edema. Neurologic: No focal changes. ASSESSMENT: 1. Bibasilar pneumonia. 2. Colitis. 3. Diabetes with hyperglycemia. 4. Acute on chronic renal failure. 5. Chronic congestive systolic heart failure. 6. Chronic obstructive pulmonary disease with mild exacerbation. PLAN: Continue Flagyl and Rocephin. We will add azithromycin and we will follow. cc: Dion Sultana MD
[2019-03-05] MEDS: TYLENOL PO PRN (17:08)
--- NOTE | 2019-03-05 18:19 | HISTORY AND PHYSICAL ---
ADDENDUM: FAMILY HISTORY: Noncontributory. MEDICATIONS: Do not have a complete accurate medication list currently but will address once this can be verified. PHYSICAL EXAMINATION: VITAL SIGNS: Reviewed. GENERAL: The patient is awake. She is in mild respiratory distress. She is able to talk in complete sentences. HEENT: Normocephalic. NECK: Supple. CARDIOVASCULAR: Regular rate. CHEST: Positive wheezing. No apparent crackles. Good air movement. ABDOMEN: Soft, nondistended. EXTREMITIES: Moves all extremities. NEUROLOGIC: No changes. cc: Dion Sultana MD
--- NOTE | 2019-03-05 18:34 | Diag Imaging Result Doc PS360 ---
EXAM: CT THORAX/ABD/PELVIS W/O CON HISTORY: abdominal pain, resp failure TECHNIQUE: 1. CT chest without contrast 2. CT abdomen and pelvis without contrast COMPARISON: Abdomen compared to 01/27/2018 FINDINGS: Chest: There are tiny bilateral pleural effusions. There are multifocal bilateral infiltrates most pronounced in the left lower lobe. Air bronchograms in the left lower lobe. There is also mild basilar atelectasis. The heart is enlarged. No thoracic aortic aneurysm. Prominent atherosclerosis. There is a left-sided pacemaker. No bronchiectasis. No pneumothoraces. Abdomen and pelvis: The gallbladder is not identified. Normal noncontrasted liver. Spleen is small. Normal pancreas and adrenal glands. No renal stones. The right renal pelvis and calyces are dilated. No definite dilatation of the ureter. Prominent atherosclerosis. No bowel obstruction. There is stool throughout the colon. No abscess. Urinary bladder is mildly distended and appears normal. The uterus has been removed. No pelvic mass. IMPRESSION: Chest: Bilateral pneumonia with small bilateral pleural effusions and mild cardiomegaly. Abdomen and pelvis: 1. Interval development of a dilated right renal pelvis and calyces, but no stones. 2. Severe atherosclerosis 3. Constipation 4. Hysterectomy This exam was performed using automated exposure control, adjustment of mA or kV according to patient size, and/or use of iterative reconstruction technique. Electronically signed by Alcon Alonso 03/05/2019 6:31 PM
[2019-03-05] MEDS ORDERED: LANTUS INSULIN SUBQ ONE (19:10)
[2019-03-05] MEDS ORDERED: LASIX IV ONE (19:30)
--- NOTE | 2019-03-05 23:37 | EKG Report ---
Test Performed on : 03/05/2019 8:55:50 PM Test Reason : baseline not done in ER Blood Pressure : / mmHG Vent. Rate : 104 BPM Atrial Rate : 182 BPM P-R Int : 000 ms QRS Dur : 094 ms QT Int : 374 ms P-R-T Axes : 000 008 178 degrees QTc Int : 491 ms Atrial fibrillation. with rapid ventricular response. Minimal voltage criteria for LVH, may be normal variant ST & T wave abnormality, consider inferolateral ischemia Abnormal ECG When compared with ECG of 11-DEC-2018 05:14, Atrial fibrillation. has replaced Electronic atrial pacemaker Vent. rate has increased BY 42 BPM T wave inversion no longer evident in Anterior leads Confirmed by Mark Keller MD ([id number]) on 03/07/2019 4:17:54 AM
[2019-03-06] MEDS: HUMALOG (PARKWAY) SUBQ SCH ×2 (04:55→11:44)
[2019-03-06 06:13] LABS: BASO# 0.02 X1000 (0.0-0.2); BASO% 0.2 % (0.0-0.8); EOS# 0.15 X1000 (0.0-0.7); EOS% 1.6 % (0.0-10.0); HEMOGLOBIN 11.4 g/dL (12.0-16.0); IMM GRAN# 0.04 X1000 (0.0-0.04); IMM GRAN% 0.4 % (0.0-0.5); LYMPH# 0.84 X1000 (1.2-3.4); LYMPH% 8.8 % (20.5-51.1); MCH 29.4 PG (27-31); MCHC 32.6 g/dL (33-37); MCV 90.2 FL (81-99); MONO# 0.56 X1000 (0.11-0.59); MONO% 5.8 % (1.7-9.3); MPV 11.8 FL (7.4-10.4); NEUT# 7.97 X1000 (1.4-6.5); NEUT% 83.2 % (42.2-75.2); PLT 229 X1000 (130-400); RBC 3.88 XMIL (4.2-5.4); RDW 14.9 % (11.5-14.5); WBC 9.58 X1000 (4.8-10.8)
[2019-03-06 06:35] LABS: ALBUMIN 2.8 g/dL (3.5-5.0); CALCIUM 7.9 mg/dL (8.8-10.2); CREATININE 1.1 mg/dL (0.5-0.9); POTASSIUM 3.8 mmol/L (3.5-5.1); TOTAL BILIRUBIN 0.5 mg/dL (0.20-1.00); TOTAL PROTEIN 6.4 g/dL (6.3-8.3)
[2019-03-06] MEDS ORDERED: LANTUS INSULIN SUBQ SCH (09:00)
[2019-03-06] MEDS ORDERED: VANCOMYCIN IV PER PHARMACY MISC SCH (09:45)
[2019-03-06] MEDS: FLAGYL PO SCH ×3 (09:46→17:00)
[2019-03-06] MEDS: NEURONTIN PO SCH ×2 (09:46→20:40)
[2019-03-06] MEDS: CORDARONE PO SCH (09:46)
[2019-03-06] MEDS: ZOSYN 3.375 GM in NS 50 ML IV SCH ×3 (09:47→20:40)
[2019-03-06] MEDS: ELIQUIS PO SCH ×2 (09:47→20:40)
[2019-03-06] MEDS ORDERED: CARDIZEM IV ONE (10:34)
[2019-03-06] MEDS ORDERED: CARDIZEM 125/NS 125 MG/125 ML IVPB IV SCH (10:34)
--- NOTE | 2019-03-06 10:45 | Diag Imaging Result Doc PS360 ---
EXAM: US RENAL 1 (LIMITED)-RIGHT HISTORY: dilated renal pelvis on ct TECHNIQUE: Renal ultrasound COMPARISON: None. FINDINGS: The right kidney measures 12.5 x 7.7 x 5.6 cm. There is moderate dilatation to the renal pelvis and calyces. Borderline mild increased renal echotexture. Normal cortical thickness. No stones. The urinary bladder is moderately distended and appears normal. IMPRESSION: Dilated right renal pelvis and calyces. Electronically signed by Alcon Alonso 03/06/2019 10:43 AM
--- NOTE | 2019-03-06 11:54 | PROGRESS NOTE ---
DATE: 03/06/2019 SUBJECTIVE DATA: Ms. Pereira is a 78-year-old female who was admitted for left basilar pneumonia and colitis. She also has a history of chronic atrial fibrillation, COPD, and chronic kidney disease. She was admitted and blood cultures were drawn and she was started on antibiotics. Yesterday afternoon she became very anxious complaining of vague abdominal symptoms and worsening shortness of breath. She was complaining of back pain as well that she states that she normally gets when she has pneumonia. She was more tachycardic yesterday and visibly anxious and given the known pneumonia and questionable colitis we went head and did a CT of the abdomen and pelvis and thorax. The thorax CT showed bilateral pneumonia and the abdomen and pelvis showed a new and interval development of renal pelvis dilation on the right. Along with all of this, her blood sugar spiked as well. DKA w/u was negative but we were aggressive with the insulin. During the night she went into a rapid ventricular response with her atrial fibrillation and also spiked a temp of 102 so we moved her to the ICU this morning and put her on a Cardizem drip and increased her antibiotic coverage. Blood cultures did come back 1 out of 2 bottles showing gram-positive cocci and she had been placed on vancomycin. Given the totality of atrial fibrillation with RVR, pneumonia, worsening hypoxic respiratory failure, and newly dilated renal pelvis we feel that she will need to go to [facility] for a higher level of care. OBJECTIVE DATA: VITAL SIGNS: Blood pressure is 159/89, heart rate 131, respiratory rate 24, O2 sat 95% on 4 L nasal cannula, and temperature 98.1. GENERAL: This is a chronically ill 78-year-old female lying in a hospital bed in no acute distress at this time. NEUROLOGIC: No focal deficits are noted. HEENT: The head is atraumatic and normocephalic. Her pupils are equal, round, and reactive to light. Oral mucosa is a bit dry. NECK: Trachea is midline. There is no JVD. CHEST: Rhonchi bilaterally. CV: Tachy and irregular. S1 and S2 is noted. GI: Soft, nondistended, and nontender. Bowel sounds are hypoactive. EXTREMITIES: The extremities are without edema. The pulses are 1+ bilaterally. DIAGNOSTIC DATA: Right renal ultrasound this morning shows a dilated right renal pelvis and calyces. CT abdomen, chest, and pelvis done yesterday evening shows bilateral pneumonia with small bilateral pleural effusions and mild cardiomegaly. Interval development of right renal pelvis and calyces. No stones. Severe atherosclerosis, constipation, and hysterectomy. EKG done yesterday evening shows atrial fibrillation with a rapid ventricular response. Mild left ventricular hypertrophy. LABORATORY DATA: WBC is 9.5, hemoglobin 11.4, hematocrit 35, and platelet count 229. Sodium is 142, potassium 3.8, chloride 108, CO2 25, anion gap 10, BUN 15, creatinine 1.1, glucose 135, calcium 7.9, albumin 2.8, and TSH 0.78. Acetone level yesterday was negative. Microbiology shows 1 out 2 bottles positive for GPC. Hemolytic I O: Intake 1850 and output 1850. ASSESSMENT AND PLAN: 1. Acute hypoxemic respiratory failure: Presumably due to her bilateral pneumonia. She has had increasing oxygen need. We have placed her on broad spectrum antibiotics, breathing treatments, aggressive pulmonary toilet, and we will go ahead and consult Pulmonary Critical Care. 2. Atrial fibrillation with rapid ventricular response: She is on amiodarone p.o. but we will put her on Cardizem bolus and drip and consult Cardiology for further assistance. We will continue her anticoagulation. 3. Newly dilated right renal pelvis: We have spoken with Dr. Arndt with Urology and he is more than happy to see Ms. Pereira, however, he feels that before any intervention can be done her pneumonia and atrial fibrillation need to be dealt with. We will defer to the [facility] Team for timing of consultation. 4. Possible bacteremia: The patient has 1 out of 2 bottles growing gram- positive cocci. She is on vancomycin which we will continue. 5. Chronic kidney disease: Creatinine is actually much improved and at baseline. We will continue to monitor this. 6. History of permanent pacemaker: Stable. Cardiology has been consulted. 7. Diabetes mellitus: We will continue her insulin regimen, follow pattern sugars and sliding scale insulin. 8. The patient will be transferred to [facility] to the ICU for a higher level of care, further treatment and evaluation. Dictated by FANNY Garza for Dion Sultana MD cc: FANNY Garza MD [facility]
--- NOTE | 2019-03-06 12:10 | PROGRESS NOTE ---
DATE: 03/06/2019 SUBJECTIVE: The patient states that she is feeling a little better. Still has some cough and congestion. She states she is still having some difficulty breathing at times. Her oxygen level last night went from 92% on 2 L to 92% on 5 L. OBJECTIVE: T-max is 101.9, temperature current is 98.6, pulse 98, respiratory rate 22, blood pressure 151/68. General: The patient is pleasant to talk with. She is in mild respiratory distress. She is sitting up on the side of the bed, answering questions appropriately. HEENT: Normocephalic. Neck is supple. Cardiovascular: Regular rate. Chest: Decreased but equal. No crackles. No wheezing currently. Abdomen is soft, obese. Extremities: Moves all extremities. Neurologic: No changes. ASSESSMENT: 1. Acute hypoxic respiratory failure. 2. Left basilar pneumonia. 3. Colitis. 4. Diabetes with hyperglycemia. 5. Acute on chronic renal failure. Creatinine is actually improving. 6. Chronic systolic congestive heart failure. 7. Febrile illness. 8. One of 2 blood cultures positive for gram-positive cocci. PLAN: At this point, we will transition the patient to [facility] for pulmonary and infectious disease to see her. She is still having a fever despite Flagyl, Zosyn, and vancomycin. We will continue current antibiotics and ask them for assistance. Continue oxygen and breathing treatments. cc: Dion Sultana MD
--- NOTE | 2019-03-06 12:20 | EKG Report ---
Test Performed on : 03/06/2019 12:06:42 PM Test Reason : to check for convertion Blood Pressure : / mmHG Vent. Rate : 111 BPM Atrial Rate : 153 BPM P-R Int : 000 ms QRS Dur : 092 ms QT Int : 368 ms P-R-T Axes : 000 028 198 degrees QTc Int : 500 ms Atrial fibrillation. with rapid ventricular response. ST & T wave abnormality, consider inferolateral ischemia Abnormal ECG When compared with ECG of 05-MAR-2019 20:55, (Unconfirmed) No significant change was found Confirmed by Mark Keller MD ([id number]) on 03/07/2019 4:17:33 AM
[2019-03-06] MEDS ORDERED: XOPENEX NEB INH SCH (14:11)
[2019-03-06] MEDS ORDERED: NICODERM PATCH TD SCH (14:11)
[2019-03-06] MEDS ORDERED: XOPENEX NEB INH PRN ×3 (14:11→14:42)
[2019-03-06 14:12] LABS: URINE SOURCE CLEAN CATCH
[2019-03-06 14:18] LABS: BILIRUBIN URINE NEGATIVE (NEGATIVE); BLOOD URINE NEGATIVE (NEGATIVE); CLARITY CLEAR (CLEAR); COLOR YELLOW; KETONE URINE TRACE mg/dL (NEGATIVE); LEUKOCYTES URINE NEGATIVE (NEGATIVE); NITRITE URINE NEGATIVE (NEGATIVE); PROTEIN URINE TRACE mg/dL (NEGATIVE); UROBILINOGEN URINE NORMAL
[2019-03-06 14:26] LABS: URINE BACTERIA 1+ /HFP; URINE CAST NONE SEEN /LPF; URINE CRYSTAL NONE SEEN /HPF; URINE EPITHELIAL CELLS >10 /HPF (<10); URINE RBC <10 /HPF (<10); URINE WBC <10 /HPF (<10); URINE YEAST NONE SEEN /HPF
[2019-03-06] MEDS ORDERED: VANCOMYCIN 1,500 MG in NS 250 ML IV SCH (15:00)
[2019-03-06] MEDS: HUMALOG SUBQ SCH ×3 (15:22→23:55)
--- NOTE | 2019-03-06 15:28 | Diag Imaging Result Doc PS360 ---
EXAM: CHEST-PORTABLE HISTORY: pneumonia TECHNIQUE: Portable chest single view COMPARISON: 03/04/2019 FINDINGS: The lungs are well expanded. The heart is enlarged. There is a left-sided pacemaker. The vessels are distended. There are infiltrates and atelectasis in the left lung base with a small left pleural effusion. IMPRESSION: Interval worsening. Electronically signed by Alcon Alonso 03/06/2019 3:25 PM
[2019-03-06] MEDS: XOPENEX NEB INH SCH ×3 (15:50→23:24)
[2019-03-06] MEDS ORDERED: HUMALOG SUBQ SCH (16:00)
[2019-03-06] MEDS ORDERED: LASIX IV ONE (16:19)
[2019-03-06] MEDS: PRINIVIL PO SCH (17:00)
[2019-03-06] MEDS: NICODERM PATCH TD SCH (17:00)
--- NOTE | 2019-03-06 17:16 | CARDIOLOGY CONSULTATION ---
DATE: 03/06/2019 The patient is admitted with bilateral pneumonia with small effusion with mild cardiomegaly noted on the CT scans. A 78-year-old Afro-[place] lady is admitted with having cough with mild expectoration and also had low back pain and was having increasing shortness of breath. Came to the emergency room, was admitted at [facility], subsequently transferred here. She has history of chronic atrial fibrillation having undergone cardioversion in the past and noted to be in atrial fibrillation started on Cardizem drip. The patient denies chest pain. Complains of shortness of breath. She does not perceive any fevers. She has been started on antibiotics. She had a CT scan of the abdomen and chest done which revealed bilateral pneumonia, some renal pelvic dilatation on the right side was noted. PAST MEDICAL HISTORY: 1. Atrial fibrillation status post cardioversion in the past. 2. Anticoagulation therapy. 3. COPD. 4. Renal insufficiency. 5. Hypertension. 6. Diabetes. 7. Peripheral vascular disease. HOME MEDICATIONS: Include clonidine 0.2 b.i.d., insulin as needed, amlodipine 10 mg a day, losartan 50, Eliquis 5 b.i.d., metoprolol 50 b.i.d. PHYSICAL EXAMINATION: Blood pressure 170/86, 1st and second heart sounds were heard. There was no S3 gallop. Respiratory: Scattered wheeze. Abdomen: Soft, nontender. There was no guarding or rigidity. Bowel sounds were heard. Central nervous system: Alert and was moving all 4 extremities. Examination of extremities revealed no pedal edema. LAB: Gram positive cocci were noted in the blood. Chemistry. Sodium 142, potassium 3.8, BUN 15, creatinine 1.1. Glucose was elevated at 450. Troponin was negative. Hematology, WBC 9.58, RBC 3.8, hemoglobin 11.4, hematocrit 35, platelet count of 229,000. ASSESSMENT AND PLAN: 1. Ms Jenna Pereira is a 78-year-old Afro-[place] lady with history of atrial fibrillation in the past status post cardioversion, permanent pacemaker implantation, hypertension, diabetes, peripheral vascular disease is admitted with cough, shortness of breath. Has bilateral pneumonia with pleural effusion. Pneumonia more pronounced in the left lower lobe. 2. From a cardiac standpoint she was in atrial fibrillation, started on Cardizem drip. At home she was on amiodarone, we will continue that. 3. We will restart her home medications with beta-blockers and ZAC inhibitors as well and decrease and adjust Cardizem drip for rate control. 4. Anticoagulation therapy. She is on Eliquis. She was going to be continued on that. 5. Will get an echocardiogram to assess cardiac and valvular function. 6. For her pneumonia she received Zosyn, Flagyl and vancomycin. I have not made any other changes. 7. Diabetes. Continue with home medication. Thank you for the consult, follow hospital course. cc: MD Weston Hawkins MD
--- NOTE | 2019-03-06 17:29 | PULMONOLOGY CONSULTATION ---
DATE: 03/06/2019 REASON FOR CONSULTATION: Pneumonia with respiratory failure. HISTORY OF PRESENT ILLNESS: Ms. Pereira is a 78-year-old black female with COPD, ongoing tobacco use and prior pneumonias, who reports onset of increased cough and sputum production over the last several days. The patient presented to the emergency room with increased shortness of breath, cough, and fevers. CT scan of the chest, abdomen and pelvis was performed which revealed bilateral pneumonia with consolidation in the left lower lobe, cardiomegaly, with new dilation of the right renal pelvis which was not present 01/27/2018. The patient was admitted to [facility]. One of 2 blood cultures are growing gram-positive cocci. The patient was transferred to [facility] for specialty evaluation. PAST MEDICAL HISTORY: 1. COPD with ongoing tobacco use. 2. History of recurrent pneumonia. Patient previously admitted earlier this year with a right upper lobe and right lower lobe pneumonia. 3. Chronic kidney disease. 4. Atrial fibrillation/atrial flutter history. 5. Status post pacemaker placement. 6. Hypertension. 7. Diabetes mellitus. 8. Status post hysterectomy. 9. 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 10. Status post embolus requiring thrombectomy of the left brachial artery 03/21/2017 for an ischemic left hand. SOCIAL HISTORY: Patient denies alcohol use. Ongoing tobacco use. FAMILY HISTORY: Notable for prior strokes. REVIEW OF SYSTEMS: As noted in the HPI. PHYSICAL EXAMINATION: Reveals a well-developed, well-nourished black female resting comfortably in no distress. BP 170/86, heart rate 106, respiratory rate 20, oxygen saturation 99% on 5 L per nasal cannula.HEENT: Pupils are equal and reactive. Oropharynx is clear. Neck: Supple. Chest: Reveals decreased breath sounds at the left base with E to A changes. There are crackles at the right base. Cardiac: Irregular, irregular, normal S1, normal S2. Abdomen: Soft. Extremities: Without edema. LABORATORIES: Microbiology reveals 1 culture with gram-positive cocci. Chest x-ray this afternoon reveals increased infiltrates in the left lung. White blood count 9.58, hemoglobin 11.4, platelet count 229,000. IMPRESSION: A 78-year-old with 1. Community-acquired pneumonia. 2. Gastroesophageal reflux. 3. Acute hypoxemic respiratory failure. 4. Chronic obstructive pulmonary disease. 5. Ongoing tobacco use. 6. Coronary artery disease. 7. Diabetes mellitus. 8. Atrial fibrillation. 9. Dilated renal pelvis. RECOMMENDATIONS: 1. Agree with current antibiotic regimen. 2. The patient was encouraged to practice reflux precautions. 3. Bronchial hygiene with nebulizers, incentive spirometry, cough. 4. Initiate physical therapy and mobilize patient out of the bed. 5. Oxygen as needed for hypoxemic respiratory failure. 6. Encourage patient to discontinue smoking. 7. Anticipate urology evaluation. cc: MD Westno Olsen MD
[2019-03-06] MEDS: CARDIZEM 125/NS 125 MG/125 ML IVPB IV SCH (19:11)
[2019-03-06] MEDS: TYLENOL PO PRN (20:39)
[2019-03-06] MEDS: APRESOLINE PO SCH (20:40)
[2019-03-06] MEDS: LOPRESSOR PO SCH (20:40)
[2019-03-06] MEDS: ATIVAN PO SCH (20:40)
[2019-03-07] MEDS ORDERED: VANCOMYCIN 1,500 MG in NS 250 ML IV SCH ×5 (00:30→01:00)
[2019-03-07] MEDS: ZOSYN 3.375 GM in NS 50 ML IV SCH ×3 (02:00→14:00)
[2019-03-07] MEDS: XOPENEX NEB INH SCH ×6 (03:29→23:22)
[2019-03-07] MEDS: TYLENOL PO PRN ×3 (04:28→23:06)
[2019-03-07] MEDS: HUMALOG SUBQ SCH ×6 (04:37→23:09)
[2019-03-07 04:56] LABS: BASO# 0.02 X1000 (0.0-0.2); BASO% 0.2 % (0.0-0.8); EOS# 0.18 X1000 (0.0-0.7); EOS% 1.9 % (0.0-10.0); HEMATOCRIT 33.1 % (37.0-47.0); HEMOGLOBIN 10.8 g/dL (12.0-16.0); IMM GRAN# 0.03 X1000 (0.0-0.04); IMM GRAN% 0.3 % (0.0-0.5); LYMPH# 1.11 X1000 (1.2-3.4); LYMPH% 11.6 % (20.5-51.1); MCH 29.3 PG (27-31); MCHC 32.6 g/dL (33-37); MCV 89.7 FL (81-99); MONO# 0.63 X1000 (0.11-0.59); MONO% 6.6 % (1.7-9.3); MPV 11.1 FL (7.4-10.4); NEUT% 79.4 % (42.2-75.2); PLT 248 X1000 (130-400); RBC 3.69 XMIL (4.2-5.4); RDW 14.7 % (11.5-14.5); WBC 9.57 X1000 (4.8-10.8)
[2019-03-07 05:19] LABS: PHOSPHORUS 2.8 mg/dL (2.7-4.5)
[2019-03-07 05:23] LABS: AGAP 12; ALB/GLOB RATIO 0.8; ALBUMIN 2.5 g/dL (3.5-5.0); ALKALINE PHOSPHATASE 80 U/L (32-104); BUN 12 mg/dL (8-22); CALCIUM 8.2 mg/dL (8.8-10.2); CHLORIDE 107 mmol/L (98-107); COSMO 289; ESTIMATED GFR > 60; GLUCOSE 168 mg/dL (70-104); GOT 11 U/L (10-30); GPT 11 U/L (10-36); POTASSIUM 3.8 mmol/L (3.5-5.1); SODIUM 143 mmol/L (136-145); TCO2 24 mmol/L (25-35); TOTAL BILIRUBIN 0.38 mg/dL (0.20-1.00); TOTAL PROTEIN 5.8 g/dL (6.3-8.3)
--- NOTE | 2019-03-07 07:36 | Diag Imaging Result Doc PS360 ---
EXAM: CHEST-PORTABLE INDICATION: abnormal exam TECHNIQUE: One view COMPARISON: 03/06/2019 FINDINGS: Atelectasis and/or infiltrate at the left lung base as well as a small left effusion are approximately stable. No new consolidation is identified. Cardiac silhouette is stable. IMPRESSION: Stable chest. Electronically signed by Nate Gallego 03/07/2019 7:33 AM
[2019-03-07] MEDS ORDERED: LANTUS INSULIN SUBQ SCH (09:00)
[2019-03-07] MEDS: NEURONTIN PO SCH ×2 (09:02→20:48)
[2019-03-07] MEDS: CORDARONE PO SCH (09:02)
[2019-03-07] MEDS: LOPRESSOR PO SCH ×2 (09:02→20:48)
[2019-03-07] MEDS: ELIQUIS PO SCH ×2 (09:02→20:48)
[2019-03-07] MEDS: APRESOLINE PO SCH ×2 (09:02→20:48)
[2019-03-07] MEDS: FLAGYL PO SCH ×2 (09:02→12:09)
[2019-03-07] MEDS: PRINIVIL PO SCH (09:02)
[2019-03-07] MEDS: LANTUS INSULIN SUBQ SCH (09:03)
[2019-03-07] MEDS: NICODERM PATCH TD SCH (09:51)
[2019-03-07] MEDS: ZOFRAN IV PRN (09:51)
[2019-03-07] MEDS: CARDIZEM 125/NS 125 MG/125 ML IVPB IV SCH (12:08)
--- NOTE | 2019-03-07 14:20 | PROGRESS NOTE ---
DATE: 03/07/2019 SUBJECTIVE: This morning Ms. Pereira was sitting up in a chair bed. A female family member was at the bedside with her. She refers to be doing a lot better. OBJECTIVE: Vital signs: On physical exam, blood pressure is 128/84, pulse is 83, respirations 21, temperature is 97.8 degrees On general exam, Ms. Pereira is a 78-year-old female. She was sitting up in a chair. She did not seem to be in any cardiopulmonary distress. Mucosa is pink and moist. Anicteric. Acyanotic. Neck is supple. No JVD. Respiratory System: Air entry is bilaterally reduced. There are diffuse crepitations in posterior lung serrano bilaterally, more to the left than the right. Cardiovascular: Irregularly irregular, but rate controlled. No murmurs. Abdomen is soft. Bowel sounds are present, but slightly hypoactive. Extremities: No pedal edema. Central Nervous System: Patient is awake, alert, follows commands. LABORATORY DATA: WBC is 5.57, hemoglobin is 10.8, platelet count of 248,000. Chemistry is also reviewed. Creatinine is down to 1.0, glucose is 168. A chest x-ray this morning shows stable, no new consolidation. So far, blood cultures 1/2 grew Staphylococcus haemolyticus. Urine was negative. ASSESSMENT: 1. Acute hypoxemic respiratory failure. Patient continues to be on nasal cannula oxygenation. 2. Multifocal pneumonia, left lower lobe more than right. Patient is on broad-spectrum IV antibiotics, and ID has been consulted. 3. Acute on chronic renal failure. Creatinine has normalized to 1.0, which seems to be patient's baseline. 4. Chronic atrial fibrillation with recent rapid ventricular response. The patient is currently on IV Cardizem. Cardiology is on board. 5. History of chronic obstructive pulmonary disease with ongoing tobacco use. Patient has been counseled. She is currently on nebulization therapy and antibiotics. 6. Uncontrolled diabetes mellitus with presenting A1c of 9.8. The patient is on insulin regimen. 7. Blood culture positive for Staphylococcus hemolyticus, 1/2. Unsure if this is a contaminant. We are going to repeat the blood culture. ID has also been consulted. cc: Weston Lopez MD
--- NOTE | 2019-03-07 15:32 | PULMONOLOGY PROGRESS NOTE ---
DATE: 03/07/2019 SUBJECTIVE: The patient is awake, alert, and conversant. She reports she is producing some sputum. She denies shortness of breath. OBJECTIVE: The patient is afebrile. Blood pressure 128/84, heart rate 83, respiratory rate 21, oxygen saturation 97% on 4 L per nasal cannula.HEENT: Pupils are equal and reactive. Oropharynx appears clear. Neck is supple. Chest reveals decreased breath sounds at the left base with bibasilar crackles. No rhonchi. No wheezing. Cardiac: S1, S2. Abdomen is soft. Extremities are without edema. LABORATORY DATA: White blood count 9.6, hemoglobin 10.8, platelet count 248,000. Sodium 143, potassium 3.8, chloride 107, bicarbonate 24, BUN 12, creatinine 1.0, blood glucose 235. Chest x-ray reveals left basilar infiltrate without change. Microbiology reveals Staphylococcus hemolyticus in 1/2 cultures. This is oxacillin resistant. IMPRESSION: A 78-year-old with: 1. Community-acquired pneumonia. 2. Gastroesophageal reflux. 3. Acute hypoxemic respiratory failure. 4. Chronic obstructive pulmonary disease. 5. Ongoing tobacco use. 6. Coronary artery disease. 7. Diabetes mellitus. 8. Bacteremia. 9. Atrial fibrillation. 10. Dilated renal pelvis. RECOMMENDATION: 1. Continue current antibiotic regimen. 2. Continue bronchial hygiene. 3. Maintain intake and output balance. 4. Wean oxygen as tolerated. 5. Encourage patient to discontinue tobacco use. 6. Anticipate Urology evaluation as noted by the hospitalist service. 7. We will obtain a 2-view chest x-ray tomorrow. 8. Single isolated culture with Staphylococcus hemolyticus. This is a skin maty and likely is a contaminant. cc: MD Weston Olsen MD
--- NOTE | 2019-03-07 15:36 | CONSULTATION ---
DATE OF CONSULTATION: 03/07/2019 ATTENDING PHYSICIAN: Sujata. REFERRING PHYSICIAN: Hospitalist. HISTORY OF PRESENT ILLNESS: This 78-year-old female was admitted with bilateral pneumonia. She had a CT scan of the thorax, abdomen and pelvis that revealed the bilateral pneumonia and small pleural effusions, but also some dilation of the right renal pelvis and calices with no obvious reason for obstruction. The patient underwent right partial nephrectomy in February 2018. She has not kept her followup appointment in the Urology Clinic since then. She denies any kidney pains. She states she is not having any kidney problems. She has had no hematuria. She has had no problems with kidney stones. PAST MEDICAL HISTORY: Atrial fibrillation, COPD, diabetes, hypertension, chronic renal insufficiency with a baseline creatinine of 1.1 to 1.2. CURRENT MEDICATIONS: Documented on her chart. PAST SURGICAL HISTORY: Hysterectomy, pacemaker placement, laparoscopic robot-assisted right partial nephrectomy. SOCIAL HISTORY: Cigarettes 1/2 to 1 pack a day for over 60 years. EtOH use is negative. ALLERGIES: She has no known drug allergies. REVIEW OF SYSTEMS: She states she does have significant bowel problems. She states she has not had a bowel movement in about 1 week. She denies any chest pains, but does have abdominal pain. PHYSICAL EXAMINATION: General: A thin, age apparent, normally developed black female oriented in all ways and cooperative. HEENT: Normal for age. Lungs: With distant breath sounds. Cardiovascular: Irregular rate and rhythm. Abdomen: Protuberant soft, nontender. No hepatosplenomegaly or masses. Normal bowel sounds. Genitourinary: Deferred. Extremities: No CC or E. Neurologic: No focal deficits. LABORATORY EVALUATION: Has normal serum electrolytes, BUN 12, creatinine 1.0. CBC has a white count of 9.57, hemoglobin 10.8, hematocrit 33.1 and platelets are 248,000. IMPRESSION: The patient with multiple medical problems and new onset mild dilation of the right renal calices and pelvis. She is status post right partial nephrectomy approximately 1 year ago. This should not cause hydronephrosis. Recommend further evaluation with cysto bilateral retrograde pyelograms after her pneumonia has resolved. We will set this up as an outpatient. Thank you for this consultation. cc: MD Weston Gaston MD
--- NOTE | 2019-03-07 16:47 | INFECTIOUS DISEASE CONSULT REP ---
DATE: 03/07/2019 CONCLUSION: Patient is admitted to the hospital with a bilateral pneumonia. I am concerned that she may have an immunoglobulin deficiency in view of the fact that she has previously had other episodes of pneumonia and also she has had sinus infections. The patient has 1 of 2 blood cultures positive for Staph hemolyticus. I think this is a contaminant. RECOMMENDATIONS: I am going to discontinue vancomycin, Zosyn and Flagyl and instead I am going to treat the patient with Rocephin and p.o. doxycycline. Also, I have ordered immunoglobulin levels on the patient. DISCUSSION: The patient tells me that in the past week she became short of breath. She had a cough that occasionally produced a clear sputum and she did note also that there was some blood in her sputum. She had fever. She did not have any nausea, vomiting, or diarrhea. She did not have any dysuria or flank pain. The patient's CT scan shows bilateral pneumonia and a dilated right renal pelvis, 1/2 blood cultures is growing Staph haemolyticus. Urinalysis showed bacteria but no white cells. CBC shows a white count of 9570, hemoglobin 10.8 and platelet count 248,000. Creatinine is 1. GFR is greater than 60. Liver function studies are normal. Swab for influenza was negative. 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 She has had a hysterectomy. REVIEW OF SYSTEMS: Head, eyes, ears, nose and throat: She has decreased hearing and vision. She is not complaining of any sore throat and she does not have any pain on her tongue or blisters around her mouth. Bones, joints, muscles: No joint pain or muscle aches. Respiratory: See present illness. GI: No nausea, vomiting, diarrhea. She has had some abdominal pain in the last week. Genitourinary: No dysuria or flank pain. Integument: No rashes. Neurologic: No seizures. No loss of motor or sensory function. 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 She has had a hysterectomy. PREVIOUS HOSPITALIZATIONS AND OPERATIONS: She has had 4 labor and deliveries, a hysterectomy and a partial right nephrectomy. She has also had a permanent pacemaker implanted on the left chest. MEDICAL DISEASES: Positive for diabetes mellitus, hypertension, atrial fibrillation, COPD, end- stage renal disease and cigarette smoking. INFECTIOUS DISEASE HISTORY: Positive for recurrent episodes of pneumonia and sinusitis. FAMILY HISTORY: Positive for diabetes mellitus, hypertension and stroke. SOCIAL HISTORY[place] She is single. She lives alone. She does not have any pets. She does smoke cigarettes. She does not drink alcoholic beverages or abuse drugs. ALLERGIES: The patient has no known drug allergies. HOME MEDICATIONS: Include amiodarone, amlodipine, Eliquis, Catapres, gabapentin, hydralazine, insulin, lisinopril, lorazepam, losartan, and metoprolol. PHYSICAL EXAMINATION: Vital Signs: Temperature is 98 degrees, pulse 76, respirations 26, blood pressure 149/67. The patient weighs 162 pounds. General: This is a fairly healthy-appearing, elderly female. She is in no acute distress. Head, eyes, ears, nose, and throat: She can hear my spoken words and see near objects. She does not have any white coating on her tongue. Her sinuses are not tender. Neck: No meningismus. Lungs: There were bibasilar rales. Cardiovascular: Heart rate irregular. Abdomen: Soft and nontender. Extremities: The patient had bilateral leg edema but the legs were not tender. Neurologic: Patient is awake. She can move her extremities. There is no tremor. Her sensation is intact to touch. Her memory as regarding her medical history was decreased. Integument: No rash noted. Thank you for the consult. cc: MD Weston Choudhary MD
[2019-03-07] MEDS: ROCEPHIN 2 GM in NS 50 ML IV SCH (16:57)
[2019-03-07] MEDS ORDERED: LASIX IV ONE (18:00)
[2019-03-07] MEDS: DOXYCYCLINE PO SCH (18:32)
[2019-03-07] MEDS: ATIVAN PO SCH (20:48)
[2019-03-08] MEDS: XOPENEX NEB INH SCH ×6 (03:13→23:48)
[2019-03-08] MEDS: HUMALOG SUBQ SCH ×6 (05:26→23:48)
[2019-03-08] MEDS: DOXYCYCLINE PO SCH ×2 (05:27→17:51)
[2019-03-08 06:21] LABS: AGAP 11; ALB/GLOB RATIO 0.8; ALBUMIN 3.1 g/dL (3.5-5.0); ALKALINE PHOSPHATASE 100 U/L (32-104); BUN 14 mg/dL (8-22); CALCIUM 8.9 mg/dL (8.8-10.2); CHLORIDE 101 mmol/L (98-107); COSMO 287; ESTIMATED GFR > 60; GLUCOSE 186 mg/dL (70-104); GOT 20 U/L (10-30); GPT 12 U/L (10-36); POTASSIUM 3.9 mmol/L (3.5-5.1); SODIUM 141 mmol/L (136-145); TCO2 29 mmol/L (25-35); TOTAL BILIRUBIN 0.28 mg/dL (0.20-1.00); TOTAL PROTEIN 7.1 g/dL (6.3-8.3)
[2019-03-08 07:48] LABS: BASO# 0.02 X1000 (0.0-0.2); BASO% 0.2 % (0.0-0.8); EOS# 0.09 X1000 (0.0-0.7); EOS% 0.9 % (0.0-10.0); HEMATOCRIT 35.7 % (37.0-47.0); HEMOGLOBIN 11.7 g/dL (12.0-16.0); IMM GRAN# 0.04 X1000 (0.0-0.04); IMM GRAN% 0.4 % (0.0-0.5); LYMPH# 0.69 X1000 (1.2-3.4); LYMPH% 7.2 % (20.5-51.1); MCH 29.5 PG (27-31); MCHC 32.8 g/dL (33-37); MCV 90.2 FL (81-99); MONO# 0.43 X1000 (0.11-0.59); MONO% 4.5 % (1.7-9.3); MPV 11.1 FL (7.4-10.4); NEUT# 8.31 X1000 (1.4-6.5); NEUT% 86.8 % (42.2-75.2); PLT 331 X1000 (130-400); RBC 3.96 XMIL (4.2-5.4); RDW 14.8 % (11.5-14.5); WBC 9.58 X1000 (4.8-10.8)
--- NOTE | 2019-03-08 07:52 | Diag Imaging Result Doc PS360 ---
EXAM: CHEST-2 VIEWS HISTORY: abnormal exam TECHNIQUE: Chest two views COMPARISON: 03/07/2019 FINDINGS: The lungs are hyperexpanded. Interval improvement in the left lung base although atelectasis and small infiltrates remain. There is a small left pleural effusion. The right lung is clear. Heart is mildly enlarged. There is a left-sided pacemaker. Mild scoliosis. IMPRESSION: Interval improvement. Electronically signed by Alcon Alonso 03/08/2019 7:50 AM
[2019-03-08] MEDS: APRESOLINE PO SCH ×2 (08:09→20:08)
[2019-03-08] MEDS: ELIQUIS PO SCH ×2 (08:09→20:08)
[2019-03-08] MEDS: PRINIVIL PO SCH (08:09)
[2019-03-08] MEDS: LANTUS INSULIN SUBQ SCH (08:10)
[2019-03-08] MEDS: LOPRESSOR PO SCH ×2 (08:10→20:09)
[2019-03-08] MEDS: CORDARONE PO SCH (08:10)
[2019-03-08] MEDS: NEURONTIN PO SCH ×2 (08:11→20:09)
[2019-03-08] MEDS: NICODERM PATCH TD SCH (08:15)
--- NOTE | 2019-03-08 09:40 | INFECTIOUS DISEASE PROGRESS NO ---
DATE: 03/08/2019 PRESENT ILLNESS: The patient has bilateral pneumonia but it appears to be improving. The patient may have an immunoglobulin deficiency as well. MEDICATIONS: The patient is on IV Rocephin and p.o. doxycycline. PHYSICAL EXAMINATION: Vital Signs: Temperature is 97.1 degrees, pulse 103, respirations 20, blood pressure 146/76. General: This is a somewhat ill-appearing elderly female. She is in no acute distress. HEENT: She can hear my spoken words and see near objects. She does not have any white coating on her tongue. Neck: No pain when she moves her neck. Lungs: The patient has bibasilar rales. Cardiovascular: Heart rate is irregular. Abdomen: Soft and nontender. Neurologic: Patient is alert. She can move her extremities. There is no tremor. Integument: No rash noted. LAB AND X-RAY: Chest x-ray shows improvement in the left lower lobe infiltrate. CBC shows a white count of 9580, hemoglobin 11.7, and platelet count 331,000. Creatinine is 1.0, GFR is greater than 60. Liver function studies are normal. Swab for influenza was negative. Urinalysis showed bacteria but no white blood cells. Repeat blood cultures are pending. The patient has 1 of 2 blood cultures growing Staph hemolyticus, which I think is a contaminant and does not require treatment. ASSESSMENT AND PLAN: The plan is to continue Rocephin and doxycycline and await the levels of the patient's immunoglobulins. COMORBIDITIES: She is elderly. She has diabetes mellitus, COPD, end-stage renal disease, and cigarette smoking. cc: MD Weston Choudhary MD
[2019-03-08] MEDS: ZOFRAN IV PRN (12:02)
--- NOTE | 2019-03-08 12:46 | PULMONOLOGY PROGRESS NOTE ---
DATE: 03/08/2019 SUBJECTIVE: The patient is awake, alert, and conversant. She reports she has gotten out of bed today and sat in a chair. OBJECTIVE: Vital Signs: The patient has been afebrile for the last 24 hours. Blood pressure 108/53, heart rate 94, respiratory rate 19, oxygen saturation 97% on 2 L. HEENT: Pupils are equal and reactive. Oropharynx appears clear. NECK: Supple.Chest: Reveals diminished breath sounds left base with positive rhonchi bilaterally. Cardiac: S1, S2. Abdomen: Soft. Extremities: Reveal trace edema. LABORATORY DATA: Chest x-ray is reviewed. There has been some improvement in the left lung base. White blood count 9.58, hemoglobin 11.7, platelet count 331,000. Sodium 141, potassium 3.9, chloride 101, bicarbonate 29, BUN 14, creatinine 1.0, glucose 186. IMPRESSION: A 78-year-old with: 1. Community-acquired pneumonia. 2. Gastroesophageal reflux. 3. Chronic obstructive pulmonary disease. 4. Acute hypoxemic respiratory failure. 5. Ongoing tobacco use. 6. Coronary artery disease. 7. Atrial fibrillation. 8. Diabetes mellitus. 9. Dilated renal pelvis noted on prior ultrasonography. RECOMMENDATIONS: 1. Antibiotic adjustment as outlined per Infectious Disease. 2. Continue bronchial hygiene. 3. Wean oxygen as tolerated. 4. Mobilize the patient as tolerated. 5. Encourage smoking cessation. 6. The patient is an acceptable candidate for transfer to the floor from a pulmonary standpoint. cc: MD Weston Olsen MD
--- NOTE | 2019-03-08 13:14 | PROGRESS NOTE ---
DATE: 03/08/2019 SUBJECTIVE: This morning, Ms. Pereira refers to be doing a lot better, is lying down, very comfortable in bed. Denies any complaint except for some discomfort in the abdomen. She says she has not had any bowel movement. OBJECTIVE: Vital signs: Blood pressure is 133/59, pulse is 90, respirations 16, temperature 97.8 degrees. General: Ms. Pereira is a 78-year-old female. She is in bed, no distress. HEENT: Mucosa is pink and moist. Anicteric. Acyanotic. Neck: Supple. Chest: Air entry is bilaterally reduced. There are some faint crepitations in the posterior lung serrano. Cardiovascular: Irregularly irregular. No murmurs, no rubs, no gallops. Abdomen: Soft. Bowel sounds are present but slightly hypoactive. No hepatosplenomegaly. Extremities: No pedal edema. Neurologic: The patient is awake, alert, and oriented. There is no focal neurological deficit. LABORATORY DATA: WBC is 9.58, hemoglobin is 11.7, platelet count of 331,000. Chemistry is also reviewed, unremarkable. Creatinine is still 1.0, glucose is 186. MEDICATIONS: Have all been reviewed. ASSESSMENT: 1. Acute hypoxemic respiratory failure, improved. 2. Multifocal pneumonia, left lower lobe more than right. The patient is on IV antibiotics. This has been changed by Infectious Disease. The patient is currently only on ceftriaxone and doxycycline. 3. Acute on chronic renal failure. Creatinine is down to 1.0. 4. Chronic atrial fibrillation with rapid ventricular response on presentation. The patient has been started back on her amiodarone. Cardizem drip has been discontinue. We will start her on p.o. Cardizem to help maintain better rate. 5. History of chronic obstructive pulmonary disease with ongoing tobacco abuse. The patient has been counseled. She is currently getting nebulization, steroids and antibiotics. 6. Uncontrolled diabetes mellitus with presenting A1c of 9.8. We will continue with insulin regimen. 7. Constipation. We will start the patient on bowel regimen. PLAN: So in general, I think Ms. Pereira is doing a lot better. She was initially admitted to [facility] and was transferred over here for higher level of care. She has been in [facility] since yesterday. Clinically, she seems to be getting better. A chest x-ray this morning shows remarkable improvement. She is going to be transferred from the ICU to regular medical floor. We are going to continue with the IV antibiotics, nebulizations. The patient is being seen by Cardiology, Infectious Disease, and Pulmonary Medicine. Disposition is going to depend on the rest of her hospital course. cc: Weston Lopez MD
[2019-03-08] MEDS: CARDIZEM PO SCH ×2 (14:37→20:09)
[2019-03-08] MEDS: MIRALAX PO SCH (14:57)
[2019-03-08] MEDS: ROCEPHIN 2 GM in NS 50 ML IV SCH (16:24)
[2019-03-08] MEDS: ATIVAN PO SCH (20:09)
[2019-03-09] MEDS: CARDIZEM PO SCH ×4 (01:54→20:57)
[2019-03-09] MEDS: XOPENEX NEB INH SCH ×6 (04:15→23:41)
[2019-03-09] MEDS: HUMALOG SUBQ SCH ×5 (04:23→20:58)
[2019-03-09] MEDS: DOXYCYCLINE PO SCH ×2 (05:10→17:10)
[2019-03-09] MEDS: TYLENOL PO PRN ×2 (05:14→20:57)
--- NOTE | 2019-03-09 07:30 | PROGRESS NOTE ---
DATE: 03/09/2019 SUBJECTIVE: This is a 78-year-old who presented on 03/04/2019 with cough, shortness of breath, presented to the hospital with cough and congestion, constipation, nausea. States she has been short of breath, feeling fatigued, difficulty urinating, at times a strong odor. Was admitted with left basilar pneumonia, colitis, diabetes mellitus, acute on chronic renal failure, chronic systolic congestive heart failure, chronic obstructive pulmonary disease. Her CT of the chest, abdomen, and pelvis interval development of dilated right renal pelvis and calices, but no stones, severe atherosclerosis, constipation, status post hysterectomy. She had a renal ultrasound done on 03/06/2019, dilated right renal pelvis with calices. Cardiology was asked to see. History of atrial fibrillation in the past. He is status post cardioversion, permanent pacemaker implantation, hypertension, diabetes, peripheral vascular disease, admitted with cough, shortness of shortness of breath, bilateral pneumonia, pulmonary effusion. Started her on a Cardizem drip to control rate and started her at home. She was on amiodarone and so continued that. She is on beta blockers as well for anticoagulation. On Eliquis checked. Plan was to check an echocardiogram. Dr. Osei was consulted. She has underlying COPD with tobacco use, history of recurrent pneumonia. 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 OBJECTIVE: On exam today she was sleeping, sleeping well, breathing comfortably. She has remained afebrile, temperature 98.6 degrees, pulse 98 respirations were around 17 per minute, blood pressure 123/84.HEENT: Pupils are equal and round. Lungs: Lungs are clear in all lung serrano. Cardiovascular: Regular rate without murmur or S3. Abdomen: Soft. No pedal edema. ASSESSMENT AND PLAN: 1. Acute hypoxemic respiratory failure which is improved. 2. Multifocal pneumonia left lower lobe more than the right. Patient on IV antibiotics. Infectious Disease is following. Patient is on ceftriaxone and doxycycline. 3. Acute on chronic renal failure. Creatinine is down to 1.0. 4. Chronic atrial fibrillation. Rapid ventricular response on presentation. The patient is back on amiodarone and a Cardizem drip, which I think they have tried to wean off and switch her to p.o. Cardizem. 5. Chronic obstructive pulmonary disease with ongoing tobacco use. The patient has been counseled, encouraged to quit smoking. Currently getting bronchodilators, nebulized steroids and antibiotics. 6. Uncontrolled diabetes mellitus. A1c was 9.8 so continue pattern sugars and sliding scale. 7. Constipation. Continue her bowel regimen. REVIEW OF MEDICATIONS: On Cardizem 30 mg p.o. q.6 hours, Cordarone 200 mg a day, Eliquis 5 mg b.i.d., doxycycline 100 mg q.12, Neurontin 300 mg b.i.d., Apresoline 100 mg b.i.d., lisinopril 40 mg a day, Ativan 0.5 mg at bedtime, Lopressor 50 mg b.i.d., nicotine patch 7 mg daily, polyethylene glycol 17 g p.o. daily, ceftriaxone 2 g IV q. 24 hours. The patient has noted may have an immunoglobulin deficiency as well. cc: MD Weston Castanon MD
[2019-03-09] MEDS ORDERED: GAMUNEX-C 10% IV ONE (08:00)
[2019-03-09] MEDS: ELIQUIS PO SCH ×2 (08:45→20:57)
[2019-03-09] MEDS: PRINIVIL PO SCH (08:45)
[2019-03-09] MEDS: NICODERM PATCH TD SCH (08:45)
[2019-03-09] MEDS: APRESOLINE PO SCH ×2 (08:45→20:57)
[2019-03-09] MEDS: CORDARONE PO SCH (08:45)
[2019-03-09] MEDS: LOPRESSOR PO SCH ×2 (08:45→20:57)
[2019-03-09] MEDS: LANTUS INSULIN SUBQ SCH (08:46)
[2019-03-09] MEDS: NEURONTIN PO SCH ×2 (08:46→20:57)
[2019-03-09] MEDS: MIRALAX PO SCH (08:53)
--- NOTE | 2019-03-09 09:20 | Diag Imaging Result Doc PS360 ---
EXAM: CHEST-2 VIEWS HISTORY: abnormal exam TECHNIQUE: Chest two views COMPARISON: 03/08/2019 FINDINGS: The lungs are hyperexpanded. There are infiltrates in the left lower lobe with a small effusion. Heart remains mildly enlarged. There is a left-sided pacemaker. IMPRESSION: No interval improvement. Electronically signed by Aclon Alonso 03/09/2019 9:17 AM
--- NOTE | 2019-03-09 10:07 | INFECTIOUS DISEASE PROGRESS NO ---
DATE: 03/09/2019 PRESENT ILLNESS: The patient has pneumonia and today it was discovered that she does have an immunodeficiency, namely an IgG level of 583. MEDICATIONS: This the 5th day of treatment with antibiotics. The patient is on Rocephin and doxycycline. PHYSICAL EXAMINATION: Vital Signs: Temperature is 98.6 degrees, pulse 98, respirations 23, blood pressure 123/84. General: This is an ill-appearing, elderly female. She is in no acute distress. Head, Eyes, Ears, Nose, and Throat: She can hear my spoken words and see near objects. There is no drainage from her nose or ears. She does not have any white patches on her tongue. Neck: She does not have any pain when she moves her neck. Lungs: There were rales heard in the left base. The right lung was clear. Cardiovascular: Heart rate is irregular. Abdomen: Soft and nontender. Neurologic: The patient is alert. She is able to walk. There is no tremor. Integument: No rash noted. LAB AND X-RAY: There is no new lab for today thus far. Chest x-ray shows improvement in the patient's left lower lobe infiltrate. Immunoglobulin levels show an IgG level of 583 and an IgA level of 295. ASSESSMENT AND PLAN: The patient has pneumonia and an immunoglobulin deficiency. I think it would be okay to discharge the patient home today. Through the computer, I have prescriptions for Ceftin 500 mg by mouth every 12 hours and doxycycline 100 mg by mouth every 12 hours, both for 9 more days. Also, I am going to give the patient a 20 g dose of immunoglobulin because of her low IgG level and the fact that she has a history of recurrent infections, especially in the sinuses. My plan is to have the patient come back to my office in approximately 9 days at which time she will be examined and also a chest x-ray will be obtained. As regarding the patient's immunoglobulin deficiency, I am going to wait for at least 6 weeks and repeat the immunoglobulin levels. If the IgG level is as low as it is now or lower, then I think she would be a candidate for monthly IVIG and view of the fact that she does have recurrent sinus infections and she has had pneumonia in the past also. COMORBIDITIES: She is elderly. She is a diabetic. She has COPD and end-stage renal disease. 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 cc: MD Weston Choudhary MD
[2019-03-09] MEDS ORDERED: LASIX IV ONE (13:21)
--- NOTE | 2019-03-09 14:11 | PULMONOLOGY PROGRESS NOTE ---
DATE: 03/09/2019 SUBJECTIVE: The patient is awake and alert. She has been out of bed. She has a slightly productive cough. OBJECTIVE: Vital Signs: The patient has been afebrile for the last 24 hours. Her oxygen has been decreased to 1 L nasal cannula flow per minute. HEENT: Pupils are equal and reactive. Oropharynx is clear. Neck is supple. Chest reveals occasional rhonchi bilaterally with crackles at the left base. Cardiac Examination: S1-S2. Abdomen is soft with good bowel sounds. Extremities reveal trace ankle edema. Laboratories: Chest x-ray reveals stable small effusion and infiltrate at the left base. No significant change from yesterday but significant in change lead the last several days. Immunology reveals a reduction in the total IgG at 583. IMPRESSION: A 78-year-old with: 1. Community-acquired pneumonia. 2. Chronic obstructive pulmonary disease. 3. Ongoing tobacco use. 4. Acute hypoxemic respiratory failure. 5. Dilated renal pelvis identified on prior ultrasonography. 6. Immunoglobulin deficiency. RECOMMENDATIONS: 1. Agree with immunoglobulin replacement today as per infectious disease recommendations. 2. Recommend followup immunoglobulin level by her primary care physician in 6 weeks. 3. Single dose of diuretics following immunoglobulin therapy. 4. Smoking cessation has been strongly encouraged. 5. The patient will need followup with urology, given abnormal dilation of the renal pelvis on ultrasonography this admission. 6. I agree with Dr. Levi Peguero. The patient should be acceptable for discharge. cc: MD Weston Olsen MD
[2019-03-09] MEDS: ROCEPHIN 2 GM in NS 50 ML IV SCH (17:09)
[2019-03-09] MEDS: ATIVAN PO SCH (20:57)
[2019-03-10] MEDS: HUMALOG SUBQ SCH ×3 (00:12→09:00)
[2019-03-10] MEDS: CARDIZEM PO SCH ×2 (02:04→08:59)
[2019-03-10] MEDS: XOPENEX NEB INH SCH ×3 (04:07→11:12)
[2019-03-10] MEDS: DOXYCYCLINE PO SCH (05:32)
[2019-03-10] MEDS: NICODERM PATCH TD SCH (08:59)
[2019-03-10] MEDS: NEURONTIN PO SCH (08:59)
[2019-03-10] MEDS: APRESOLINE PO SCH (08:59)
[2019-03-10] MEDS: LOPRESSOR PO SCH (08:59)
[2019-03-10] MEDS: PRINIVIL PO SCH (08:59)
[2019-03-10] MEDS: ELIQUIS PO SCH (08:59)
[2019-03-10] MEDS: CORDARONE PO SCH (08:59)
[2019-03-10] MEDS: MIRALAX PO SCH (09:00)
[2019-03-10] MEDS: LANTUS INSULIN SUBQ SCH (09:00)
--- NOTE | 2019-03-10 10:19 | DISCHARGE SUMMARY ---
DATE: 03/10/2019 This is a 71-year-old, who presented to the hospital with cough, congestion, constipation, nausea, had been short of breath for a couple days, difficulty urinating, and at times the urination seemed to be pretty strong. Found a left basilar pneumonia, underlying diabetes with hyperglycemia, acute on chronic renal injury, chronic systolic congestive heart failure, underlying COPD, and a history of colitis. The patient treated with antibiotics. CT of the abdomen and pelvis showed interval development of dilated right renal pelvis and calices, no stones, severe atherosclerosis, constipation, hysterectomy. Cardiology was asked to see. History of atrial fibrillation status post cardioversion in the past, on anticoagulation therapy. History of peripheral vascular disease. She had a permanent pacemaker implantation and history of hypertension. The patient was put on a Cardizem drip and was started on amiodarone. Clinically seemed to show improvement. Renal ultrasound on 03/06/2019: Dilated right renal pelvis and calices noted. Dr. Peguero asked to see and felt she had bilateral pneumonia and concerned she may have immunoglobulin deficiency. She showed clinical improvement. Pulmonary was following Dr. Osei felt she had community-acquired pneumonia, COPD, ongoing tobacco use, acute hypoxemic respiratory failure which showed steady improvement. She did have dilated renal pelvis on ultrasound and got immunoglobulin replacement, as she was found to have immunoglobulin deficiency. She clinically and radiographically improved and felt she could go home. The patient is on Rocephin and doxycycline. MICROBIOLOGY: She had Staphylococcus hemolyticus grown from 03/04/2019, which believe this was a contaminant. It is 1 of 2. No growth from 03/08/2019. 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 IgG was 583, so I think the plan is to give her some immunoglobulin. This is day 6 of her antibiotics, and I will discuss with Dr. Peguero, but maybe we can plan on going home in the morning. cc: MD Weston Castanon MD
--- NOTE | 2019-03-10 10:34 | DISCHARGE SUMMARY ---
ADMISSION DATE: 03/04/2019 DISCHARGE DATE: 03/10/2019 ADDENDUM: I dictated a discharge summary and there was a question whether she could go, so this is just an addendum. The patient is ready go. Talked to Dr. Peguero. She has received her immunoglobulin and she is scheduled to go home and will get will get follow up with Dr. Peguero and they will recheck immunoglobulin. He has her set up to get her antibiotics at home which I believe are doxycycline, so will continue his home medicines and will be on doxycycline and I believe will be on doxycycline for another 2 weeks and follow up with Dr. Peguero in about a week. cc: MD Weston Castanon MD
[2019-03-10 11:42] VITALS: BP 151/61
== END 2019-03-10 13:02 | disposition home or self-care (01) | DRG 193 ==
LOC: P.ED 09:56 → SUATTDRO 13:56 → P.MEDSURG 13:56 → P.ICU 03-05 19:47 → ICU 03-06 14:31 → 3N 03-09 14:50
PROVIDERS: ADMIT Internal Medicine; ATTEND Emergency Medicine
CPT/HCPCS: 71010; 71020; 71045; 71046; 71250; 74022; 74176; 76775; 80048; 80053; 81001; 82009; 82784; 82805; 82948; 83036; 83605; 83690; 83735; 84100; 84443; 84484; 85025; 85027; 87040; 87077; 87088; 87186; 87275; 87276; 87804; 93005; 93010; 93306; 94640; 94761; 94799; 96365; 97162; 97530; 99285; A9270; J0696; J1561; J1815; J1940; J2060; J2270; J2405; J2543; J3370; J7030; J7050; XXXXX

== ENCOUNTER 2019-09-07 05:17 | Day surgery (SDC) ==
[2019-09-02 08:37] LABS: BASO# 0.01 X1000 (0.0-0.2); BASO% 0.2 % (0.0-0.8); EOS# 0.13 X1000 (0.0-0.7); EOS% 2.9 % (0.0-10.0); HEMATOCRIT 39.4 % (37.0-47.0); HEMOGLOBIN 12.4 g/dL (12.0-16.0); LYMPH# 1.17 X1000 (1.2-3.4); MCH 29.2 PG (27-31); MCHC 31.5 g/dL (33-37); MCV 92.7 FL (81-99); MONO# 0.29 X1000 (0.11-0.59); MONO% 6.4 % (1.7-9.3); MPV 12.3 FL (7.4-10.4); NEUT% 64.5 % (42.2-75.2); PLT 132 X1000 (130-400); RBC 4.25 XMIL (4.2-5.4)
[2019-09-02 09:43] LABS: CREATININE 1.2 mg/dL (0.5-0.9); POTASSIUM 4.7 mmol/L (3.5-5.1)
[2019-09-07] MEDS ORDERED: KEFZOL 1 GM/D5W 1 GM/50 ML IVPB ONE (05:40)
[2019-09-07] MEDS ORDERED: LR 500 ML ONE (05:40)
[2019-09-07] MEDS ORDERED: FENTANYL ONE (05:53)
[2019-09-07] MEDS ORDERED: DECADRON ONE (06:02)
[2019-09-07] MEDS ORDERED: XYLOCAINE-MPF 2% ONE (06:02)
[2019-09-07] MEDS ORDERED: QUELICIN (DOSE) ONE (06:02)
[2019-09-07] MEDS ORDERED: ZOFRAN ONE (06:02)
[2019-09-07] MEDS ORDERED: STERILE WATER INJ. ONE (06:02)
[2019-09-07] MEDS ORDERED: NEO-SYNEPHRINE ONE (06:02)
[2019-09-07] MEDS ORDERED: DUONEB (A & A) INH ONE (06:17)
[2019-09-07] MEDS ORDERED: METHYLENE BLUE 0.5% ONE (06:28)
[2019-09-07] MEDS ORDERED: MARCAINE 0.25% PF ONE (06:28)
[2019-09-07] MEDS ORDERED: XYLOCAINE 1%/EPI 1:100,000 ONE (06:28)
[2019-09-07] MEDS ORDERED: SODIUM CHLORIDE 0.9% 10 ML ONE (08:45)
[2019-09-07] MEDS ORDERED: PHENERGAN ONE (08:45)
[2019-09-07] MEDS: DILAUDID ONE ×2 (08:47→08:58)
[2019-09-07] MEDS ORDERED: NORCO-10 ONE (09:16)
[2019-09-07] MEDS ORDERED: NORCO-10 PO PRN (10:36)
[2019-09-07] MEDS ORDERED: PHENERGAN IM PRN (10:37)
[2019-09-07] MEDS: HUMULIN R SUBQ SCH ×3 (11:35→22:00)
[2019-09-07] MEDS ORDERED: FLU VACCINE IM ONE (12:55)
--- NOTE | 2019-09-07 13:28 | OPERATIVE NOTE ---
PROCEDURE DATE : 09/07/2019 PREOPERATIVE DIAGNOSIS: Ductal carcinoma in situ, right breast. POSTOPERATIVE DIAGNOSIS: Ductal carcinoma in situ, right breast. PRINCIPAL PROCEDURE: 1. Injection of periareolar blue dye for identification of right axillary sentinel lymph node. 2. Right total mastectomy. 3. Right deep axillary sentinel lymph node biopsy x2. SURGEON: Catie Simms MD. ANESTHESIA: General. ESTIMATED BLOOD LOSS: 75 mL. DRAINS: Two #10 flat Armand-Hough drains. INDICATIONS: Ms. Jenna Pereira is an 79-year-old black female, who has diffuse microcalcifications throughout the right breast. We did a stereotactic biopsy of the medial microcalcifications, which documented ductal carcinoma in situ. We did discuss surgical treatment options and we chose a total mastectomy. We will biopsy the right axillary sentinel lymph node because this is our chance to identify them. FINDINGS: We identified 2 sentinel lymph nodes, they were both stained blue and high 10 second counts of over 30,000. After removal of these sentinel lymph nodes, the counts in the right axilla were essentially 0. On palpation of the right axilla, there was no abnormal lymph nodes palpated. We felt we had a thorough right total mastectomy. PROCEDURE: The patient was injected Nuclear Medicine prior to surgery right breast for identification of her axillary sentinel lymph nodes. She was taken to surgery where her right breast, chest, and axilla were prepped and draped within a sterile field. She was given Ancef prophylactically. I began the procedure by injecting about 5 mL of methylene blue in the periareolar area laterally to further identify right axillary sentinel lymph nodes. The breast was massaged. I marked an elliptical incision encompassing most the breast and nipple-areolar complex. I also encompassed our biopsy site within this incision. I made the incision with a 10 blade scalpel. We created our flaps using cautery. Our superior flap was to the clavicle, medial flap to the sternum, inferior flap to the inframammary fold, and I removed the breast from medial to lateral off the pectoralis major muscle again using cautery. At this point, I identify blue dye in the lymphatics and we removed 2 sentinel lymph nodes, the first sentinel lymph node was stained blue, it was not enlarged, and it had 10 second counts of over 30,000. The second sentinel lymph node was partially stained blue, there was clear lymphatics, blue lymphatics, going to this lymph node, it was removed, again, it was not enlarged, and it had high 10 second counts also. I labeled these sentinel node 1 and sentinel node 2. After removal of these 2 lymph nodes, the counts in the right axilla were essentially 0. Palpation of the right axilla showed no other abnormal lymph nodes palpated. I placed 2 different 10 flat Armand-Hough drains, one medially under the skin flaps and one in the right axillary, they were brought through separate stab incisions and secured to the skin with 2-0 nylon stitches. I thorough irrigated the wound. Irrigation was removed with suction. I closed the wound in layers, first layer with 3-0 popoff Vicryl stitches closed the subcutaneous tissue, skin was closed with a 4-0 Monocryl subcuticular stitch. Dressings were applied. She tolerated the procedure well with plans for her to go to the recovery room and be admitted overnight. I spoke with her family after the procedure. cc: MD Catie Yost MD
[2019-09-07] MEDS: HUMALOG SUBQ SCH (17:54)
[2019-09-07] MEDS ORDERED: LANTUS INSULIN SUBQ SCH (21:00)
[2019-09-07] MEDS ORDERED: NORVASC PO SCH (21:00)
[2019-09-07] MEDS ORDERED: ATIVAN PO SCH (21:00)
[2019-09-07] MEDS: LOPRESSOR PO SCH (21:59)
[2019-09-07] MEDS: NEURONTIN PO SCH (21:59)
[2019-09-07] MEDS: PERIDEX MT SCH (22:00)
[2019-09-07] MEDS: CATAPRES PO SCH (22:30)
[2019-09-07] MEDS: APRESOLINE PO SCH (22:30)
[2019-09-08] MEDS: HUMULIN R SUBQ SCH ×2 (06:39→11:26)
[2019-09-08] MEDS ORDERED: ASPIRIN PO SCH (09:00)
[2019-09-08] MEDS ORDERED: CORDARONE PO SCH (09:00)
[2019-09-08] MEDS ORDERED: PRINIVIL PO SCH (09:00)
[2019-09-08] MEDS ORDERED: ALDACTONE PO SCH (09:00)
[2019-09-08] MEDS: HUMALOG SUBQ SCH ×2 (10:01→11:26)
[2019-09-08] MEDS: APRESOLINE PO SCH (10:01)
[2019-09-08] MEDS: CATAPRES PO SCH (10:01)
[2019-09-08] MEDS: NEURONTIN PO SCH (10:01)
[2019-09-08] MEDS: PERIDEX MT SCH (10:02)
[2019-09-08] MEDS: LOPRESSOR PO SCH (10:02)
[2019-09-08 12:17] VITALS: BP 106/49
--- NOTE | 2019-09-09 12:11 | DISCHARGE SUMMARY ---
ADMISSION DATE: 09/07/2019 DISCHARGE DATE: 09/08/2019 ADMITTING DIAGNOSIS: Ductal carcinoma in situ, right breast. DISCHARGE DIAGNOSIS: Ductal carcinoma in situ, right breast. PRINCIPAL PROCEDURE: Right total mastectomy with right axillary sentinel lymph node biopsy on 09/07/2019. DISCHARGE DISABILITIES: Full. DISCHARGE DISPOSITION: She will return to our outpatient offices this coming Friday for a wound check and removal of drains. DISCHARGE MEDICATIONS: She is to return to her home medications. HOSPITAL COURSE: Ms. Jenna Pereira is an 79-year-old, black female, a patient of Dr. Eric Franks, who has been diagnosed with ductal carcinoma in situ. She has decided to treat this surgically with a total mastectomy and because we were doing a total mastectomy, I performed a right axillary sentinel lymph node biopsy. These lymph nodes appeared to be normal at the time of surgery. We are still awaiting pathology at the time of her discharge. At discharge, she had an acceptable amount of drainage from her LIZ drain. There was no significant hematoma underneath her skin flaps. It was felt safe to discharge her home under the care of her family with followup in my outpatient offices this coming Friday. She knows to contact me with any problems with her drains or wound. cc: Eric Franks MD
== END 2019-09-08 16:33 | disposition home or self-care (01) ==
LOC: 4N 05:17 → OR 05:17
PROVIDERS: ATTEND Surgery